=== PATIENT | male | born 1970 | race Caucasian/White ===

== ENCOUNTER → 2019-07-17 08:12 | Outpatient (BNVA) | payer BC, SELFPAY | PROVIDERS: Family Provider Family Medicine; Visit Provider Urology | DX: N41.1 Chronic prostatitis (principal) | CPT/HCPCS: 81001 ==

== ENCOUNTER → 2020-03-06 08:28 | Outpatient (BNVA) | payer BC, SELFPAY | PROVIDERS: Family Provider Family Medicine; PCP Family Medicine; Visit Provider Urology | DX: N41.1 Chronic prostatitis (principal) | CPT/HCPCS: 81003 ==

== ENCOUNTER → 2020-06-26 13:55 | Outpatient (BNVA) | payer OTHER, SELFPAY | PROVIDERS: Family Provider Family Medicine; PCP Family Medicine; Referring Provider Family Medicine; Visit Provider Orthopaedic Surgery | DX: M51.9 Unspecified thoracic, thoracolumbar and lumbosacral intervertebral disc disorder (principal); M47.816 Spondylosis without myelopathy or radiculopathy, lumbar region; M43.16 Spondylolisthesis, lumbar region | CPT/HCPCS: 72110 ==

== ENCOUNTER → 2020-09-04 08:15 | Outpatient (BNVA) | payer OTHER, SELFPAY | PROVIDERS: Family Provider Family Medicine; PCP Family Medicine; Visit Provider Urology | DX: Z12.5 Encounter for screening for malignant neoplasm of prostate (principal); N41.1 Chronic prostatitis | CPT/HCPCS: 81003; 84153 ==

== ENCOUNTER 2020-12-04 07:57 | Outpatient (CLI) | payer OTHER, SELFPAY ==
--- NOTE | 2020-12-04 08:00 | MR_ITS ---
WS: [id number] MRI LUMBAR SPINE NONCONTRAST HISTORY: M48.062 - Spinal stenosis, lumbar region with LEFT leg radiculopathy. Pain and cramping. COMPARISON: 02/26/2019 TECHNIQUE: Sagittal and axial multisequence imaging is submitted. Survey of the spine demonstrates mild disc bulging at C3-4. Central disc protrusions at T4-5 and T6-7 . Normal lumbar alignment with no compression fractures or marrow edema. Mild disc desiccation throughout the lumbar spine and small endplate osteophytes and hypertrophic audelia nges. No significant progression since the prior study. Conus terminates normally at L1-2 disc level. L1-L2: Mild annular disc bulging. Very slight effacement of the ventral thecal sac. No stenosis. Mild facet arthritis. L2-L3: Diffuse annular disc bulging with a central disc protrusion which extends greater to the RIGHT of midline. Mild ligamentum flavum and facet arthritis. Very minimal narrowing of the subarticular r ecesses. No high-grade stenosis. L3-L4: Diffuse annular disc bulging with a very tiny RIGHT foraminal disc protrusion which is unchang ed. Mild ligamentum flavum hypertrophy and facet arthritis. No significant stenosis. L4-L5: New LEFT disc extrusion. Disc extrusion extends into the LEFT lateral recess and below the dis c by 1.4 cm. There is contact on the LEFT lateral thecal sac and posterior displacement and narrowing of the LEFT subarticular recess. Moderate ligamentum flavum hypertrophy and facet arthritis. Severe encroachment into the LEFT lateral recess and LEFT subarticular recess. Mild foraminal narrowing. L5-S1: Diffuse disc bulging with a central protrusion and a broad-based protrusion extending into the LEFT foramen. Annular fissures are also present within the disc. Very mild LEFT foraminal narrowing. No contact on the S1 nerve roots. MR/MR lumbar spine wo con* [id number] IMPRESSION: 1. New moderate size disc extrusion at L4-5 extending significantly into the L EFT lateral recess and subarticular recess. There is significant deformity and displacement of the traversing L5 nerve root on the LEFT. Moderate LEFT subarti cular stenosis by disc protrusion. 2. Additional multilevel facet joint arthritis as described above. No additio nal high-grade stenosis. 3. Central disc protrusion at L2-3 is unchanged with no contact on the nerve r oots.
== END 2020-12-04 07:58 | disposition home or self-care (01) ==
LOC: RADSHAW 08:02
PROVIDERS: PCP Family Medicine; Visit Provider Orthopaedic Surgery
DX: M48.062 Spinal stenosis, lumbar region with neurogenic claudication (principal); M51.26 Other intervertebral disc displacement, lumbar region; M47.816 Spondylosis without myelopathy or radiculopathy, lumbar region
CPT/HCPCS: 72148

== ENCOUNTER → 2021-03-09 07:00 | Outpatient (BNVA) | payer OTHER, SELFPAY | PROVIDERS: PCP Family Medicine; Visit Provider Urology | DX: N41.1 Chronic prostatitis (principal) | CPT/HCPCS: 81003 ==

== ENCOUNTER → 2021-04-01 11:52 | Outpatient (BNVA) | payer OTHER, SELFPAY | PROVIDERS: PCP Family Medicine; Visit Provider Family Medicine | DX: E03.9 Hypothyroidism, unspecified (principal); R06.02 Shortness of breath; R79.89 Other specified abnormal findings of blood chemistry | CPT/HCPCS: 80053; 84403; 84443; 85025 ==

== ENCOUNTER → 2021-04-06 11:17 | Outpatient (BNVA) | payer OTHER, SELFPAY | PROVIDERS: PCP Family Medicine; Visit Provider Orthopaedic Surgery | DX: Z20.822 Contact with and (suspected) exposure to COVID-19 (principal) | CPT/HCPCS: 87635 ==

== ENCOUNTER 2021-04-13 06:54 | Day surgery (SDC) | payer OTHER, SELFPAY ==
[2021-04-10 10:35] VITALS: BMI 30.1
--- NOTE | 2021-04-11 11:58 | ANES.PREANE2 ---
Pre-Anesthetic Assessment Pre-Anesthetic Assessment: Height/Weight: Height 1.78 m Weight 95.254 kg Proposed Procedure: Operation Date: 04/13/21 08:15 Proposed Procedures p Discectomy 48372/m48.062(Left) - Daniel Cunningham, DO Was Beta Toby taken within 24 hours: N/A Was Clonidine taken within 24 hours: N/A Social: Social History: No alcohol and No tobacco Exam: Pre-Anes Outpt Exam: alert, oriented x 3, clear to auscultation bilaterally and regular rate & rhythm Airway: Submandibular: WNL Cervical ROM: WNL MP: 2 Dentition: Full CV/HEM: CV/HEM: HTN Musc/skel: Musc/skel: Lower Back Pain Anesthetic Plan: ASA status: 2 Anesthesia: General Risk of > 500 ml blood loss (7ml/kg in children): No PFSH Anesthesia PFSH: Medical History Allergic rhinitis Cervical disc disorder with myelopathy of mid-cervical region Chronic prostatitis Years of longstanding refractory chronic prostatitis with failure to maintain normalcy with weaning of antibiotics. Hypertension Intervertebral lumbar disc disorder Plantar fasciitis Surgical History History of appendectomy Family History Mother , AT AGE 77 Chronic kidney disease (CKD) Father , AT AGE 92 Stroke Social History Smoking and tobacco status: never smoked Alcohol intake: current Alcohol intake frequency: holidays/special occasions only Lives independently: Yes Household members: spouse Marital status: Current occupational status: employed History of recent travel: No Data Anesthesia Cardiac Studies: No Data to Display
[2021-04-13] VITALS (9 sets, daily range): BP systolic 140–175; BP diastolic 86–100; PULSE 69–96; RESP 10–18; TEMP 36.8–37.3; O2SAT 92–97
--- NOTE | 2021-04-13 | SCC_ITS ---
Procedure Done: 1. Left L4/5 laminectomy with partial facetectomy and diskectomy 5.3 seconds of fluoroscopic guidance, for a cumulative dose of 1.58 mGy, was provided to Dr. Cunningham by the radiology department. C-arm images of the lumbar spine were saved for the patient's permanent record. [facility]
--- NOTE | 2021-04-13 | XR_ITS ---
WS: [id number] Lumbar spine, C-arm fluoroscopy, 04/13/2021 Clinical Data: lumbar stenosis with neurogenic claudication Comparison: None. Findings: Dr. Cunningham performed a lumbar decompression. XR/XR lumbar spine 1V [id number] Impression: Lumbar decompression.
[2021-04-13] MEDS: sodium chloride 0.9% 1,000 ML 30 ML IV (07:29)
--- NOTE | 2021-04-13 07:41 | P.ANESUD_ITS ---
Pre-Anesthetic Update Pre-Anesthetic Assessment: Date of Surgery/Procedure: 04/13/21 Preop Courtney gnosis: Left L4-5 disc herniation Proposed Procedure: Operation Date: 04/13/21 08:15 Proposed Procedures p Discectomy 76988/m48.062(Left) - Daniel Cunningham, DO Any changes to Pre-Anesthetic Assessment?: No Last Intake: Intake Last Liquid Date 04/12/21 Last Liquid Time 19:00 Last Solid Date 04/12/21 Last Solid Time 19:00 Vitals: Temperature 99.2 F 04/13/21 07:09 Temperature Source Temporal Artery S can 04/13/21 07:09 Pulse Rate 75 04/13/21 07:09 Pulse Rhythm 04/13/21 07:09 Pulse Strength 3+ Normal 04/13/21 07:09 Respiratory Rate 18 04/13/21 07:09 Blood Pressure 157/86 04/13/21 07:09 Blood Pressure Sondra n 109 04/13/21 07:09 Pulse Oximetry 96 04/13/21 07:09 Oxygen Delivery Me thod 04/13/21 07:09 Exam: Pre-Anes Outpt Exam: alert, oriented x 3, clear to auscultation bilaterally and regular rate & rhythm Cardiac Studies: No Data to Display
--- NOTE | 2021-04-13 08:00 | W.PM.OPSUD ---
Surgery/Procedure H&P Update DATE OF PROCEDURE: April 13, 2021 DATE H&P PERFORMED: 03/24/21 H&P UPDATE INFORMATION: I have reviewed H&P completed within last 30 days, I have examined patient prior to procedure and No changes to prior documentation PREOP DIAGNOSIS: Left L4-5 disc herniation PLANNED PROCEDURE: Operation Date: 04/13/21 08:15 Proposed Procedures p Discectomy 96773/m48.062(Left) - Daniel Cunningham DO
--- NOTE | 2021-04-13 09:41 | PM.OP ---
Operative Report Date of procedure: April 13, 2021 Pre-op Diagnosis: Left L4-5 disc herniation Post-op diagnosis: same Procedure Done: 1. Left L4/5 laminectomy with partial facetectomy and diskectomy Surgeon: Daniel Cunningham Anesthesia: General Estimated blood loss (mL): 20 Condition: stable Disposition: PACU Procedure: 1. Left L4/5 laminectomy with partial facetectomy and diskectomy Patient is brought to the operative suite. After undergoing anesthesia they are placed in the prone position. All areas of impingement are well padded. Patient is then prepped and draped in the normal sterile fashion. A skin incision is made over the L4/5 level. This is confirmed under c-arm guidance. A series of dilators are passed and the tubular retractor is docked on the L4 lamina. A bovie is used to clear the soft tissue off the lamina and the L 4/5 facet joint. A high speed gudelia is then used to perform the laminectomy and take down the medial aspect of the L 4/5 facet joint. A kerrison rongeure was then used to take down the remaining lamina and smooth the edge of the laminectomy up to the point where the ligamentum flavum attaches. Attention was then brought to the medial aspect of the facet joint. The remaining medial aspect of the superior and inferior aspect of the facet joint were taken down with the kerrison from the pedicle of L4 to L 5. The facet joint had significant hypertrophy. Attention was then brought to the Ligamentum Flavum. The ligament was taken down from the lamina of L4 to L5 and out medially to the remaining facet joint. The ligament was thick. The dura was then exposed. The dura was in good repair. small disk extrusion was identified and removed. The L4 nerve was then traced with a curette out the L4/5 foramen and found to be adequately decompressed. The L5 nerve was traced with a curette around the L5 pedicle. The lateral recess was opened with a kerrison helping to further decompress the L5 nerve. Wound is then irrigated copiously with saline and surgiflo is used to stop any bleeding. The tubular retractor is removed and the wound is closed with vicryl and monocryl suture. Glue is then used to protect the wound. A sterile dressing is then placed. Patient was then placed in the supine position and transferred to the PACU in stable condition.
[2021-04-13] MEDS: HYDROcodone-acetaminophen 10-325 mg Tablet 1 TAB PO (10:39)
--- NOTE | 2021-04-13 14:42 | ANE.PACU2 ---
Inpatient post-anesthesia follow up: Airway intact: Yes Vital signs: Temperature 98.3 F Pulse Rate 69 Respiratory Rate 18 Blood Pressure 140/90 Pulse Oximetry 94 Oxygen Delivery Me thod Room Air Oxygen Flow Rate 5 Fraction of Inspir ed Oxygen Hydration adequate: Yes Nausea and vomiting: No Pain level: 4 Mental status: Baseline
== END 2021-04-13 11:11 | disposition home or self-care (01) ==
PROVIDERS: PCP Family Medicine; Visit Provider Orthopaedic Surgery
PROC: (CPT 63030; principal; 2021-04-13 08:15)
DX: M51.26 Other intervertebral disc displacement, lumbar region (principal); I10 Essential (primary) hypertension; M48.062 Spinal stenosis, lumbar region with neurogenic claudication
CPT/HCPCS: 63030; 72020; 76000; J0690; J1100; J1170; J1885; J2405; J2704; J2710; J3010; J3490; J7030

== ENCOUNTER → 2021-05-05 11:04 | Outpatient (BNVA) | payer OTHER, SELFPAY | PROVIDERS: PCP Family Medicine; Visit Provider Family Medicine | DX: R06.02 Shortness of breath (principal); K44.9 Diaphragmatic hernia without obstruction or gangrene | CPT/HCPCS: 71046 ==

== ENCOUNTER → 2021-05-28 08:26 | Outpatient (BNVA) | payer OTHER, SELFPAY | PROVIDERS: PCP Family Medicine; Visit Provider Physician Assistant | DX: M51.9 Unspecified thoracic, thoracolumbar and lumbosacral intervertebral disc disorder (principal); M25.78 Osteophyte, vertebrae; M43.16 Spondylolisthesis, lumbar region | CPT/HCPCS: 72110 ==

== ENCOUNTER 2021-06-09 06:00 | Outpatient (RCR) | payer OTHER, SELFPAY | END 2021-06-18 23:59 | disposition home or self-care (01) | LOC: SPT 06:00 | PROVIDERS: PCP Family Medicine; Referring Provider Physician Assistant; Visit Provider Physician Assistant | DX: Z47.89 Encounter for other orthopedic aftercare (principal) | CPT/HCPCS: 97110; 97161 ==

== ENCOUNTER 2021-06-16 08:00 | Outpatient (CLI) | payer OTHER, SELFPAY ==
--- NOTE | 2021-06-16 08:30 | FL_ITS ---
WS: [id number] Exam: FL barium swallow gastro [id number] Date/Time of Exam: 06/16/2021 8:16 AM Reason For Exam: Fluoroscopy time: 1.9 minutes Preliminary survey is unremarkable. Swallowing function at the level of the oropharynx is normal. The re was no indication of esophageal stricture or mass. Esophageal motility was normal. No gastroesopha geal reflux or hiatal hernia was demonstrated. Montmorency-type stomach is noted. Contrast spills freely through the proximal duodenum into the small bowel. FL/FL barium swallow gastro [id number] IMPRESSION: 1. Normal water-soluble contrast esophagram. No mass, stricture or motility dis order noted. No gastroesophageal reflux or hiatal hernia. 2. 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
[2021-06-16] MEDS: diatrizoate meglumine 120 mL Sol PO (09:16)
== END 2021-06-16 08:01 | disposition home or self-care (01) ==
PROVIDERS: PCP Family Medicine; Visit Provider Family Medicine
DX: K44.9 Diaphragmatic hernia without obstruction or gangrene (principal)
CPT/HCPCS: 74220

== ENCOUNTER 2021-06-19 06:00 | Outpatient (RCR) | payer OTHER, SELFPAY | END 2021-07-18 23:59 | disposition home or self-care (01) | LOC: SPT 06:00 | PROVIDERS: PCP Family Medicine; Referring Provider Physician Assistant; Visit Provider Physician Assistant | DX: Z47.89 Encounter for other orthopedic aftercare (principal); M54.50 Low back pain, unspecified | CPT/HCPCS: 97110 ==

== ENCOUNTER → 2021-07-14 15:30 | Outpatient (BNVA) | payer OTHER, SELFPAY | PROVIDERS: PCP Family Medicine; Visit Provider Internal Medicine Pulmonary Disease | DX: R06.00 Dyspnea, unspecified (principal); R06.02 Shortness of breath; M25.641 Stiffness of right hand, not elsewhere classified; M25.642 Stiffness of left hand, not elsewhere classified; I10 Essential (primary) hypertension | CPT/HCPCS: 36415; 80053; 82785; 85025; 85651; 86003; 86140; 86160; 86162; 86235; 86255; 86376 ==

== ENCOUNTER 2021-07-19 | Outpatient (RCR) | payer OTHER, SELFPAY | END 2021-07-22 23:59 | disposition home or self-care (01) | LOC: SPT | PROVIDERS: PCP Family Medicine; Referring Provider Physician Assistant; Visit Provider Physician Assistant | DX: M54.50 Low back pain, unspecified (principal) | CPT/HCPCS: 97110 ==

== ENCOUNTER 2021-08-24 07:39 | Outpatient (CLI) | payer OTHER, SELFPAY ==
--- NOTE | 2021-08-24 07:45 | US_ITS ---
WS: [id number] RIGHT UPPER QUADRANT ULTRASOUND HISTORY: early satiety/epigastric pain refractory to meds COMPARISON: None available. Liver: 18.8 cm in length. Liver is moderately enlarged and heterogeneous with increased attenuation. No bile duct dilatation or mass. Portal Vein: Normal hepatopetal flow with monophasic waveform. Gallbladder: Normally distended gallbladder with no stones or wall thickening. CBD: 0.4 cm Pancreas: Normal size and echogenicity. Right kidney: 11.0 cm in length. Normal size and echogenicity. No hydronephrosis or mass. Aorta and IVC: Unremarkable abdominal aorta and IVC. No ascites. US/US gall bladder [id number] IMPRESSION: 1. Normal gallbladder. 2. Moderate hepatomegaly and hepatic steatosis. 3. No bile duct dilatation.
== END 2021-08-24 07:40 | disposition home or self-care (01) ==
PROVIDERS: PCP Family Medicine; Visit Provider Family Medicine
DX: K81.1 Chronic cholecystitis (principal)
CPT/HCPCS: 76705

== ENCOUNTER 2021-08-26 10:03 | Outpatient (CLI) | payer OTHER, SELFPAY ==
--- NOTE | 2021-08-26 10:00 | CTR_ITS ---
PROCEDURE INFORMATION: Exam: CT Chest Without Contrast; Diagnostic Exam date and time: 08/26/2021 10:13 AM Age: 51 years old Clinical indication: Cough and shortness of breath; Patient HX: Reports all started with cough approx 2 years ago, SOB worsening since summer/fall, feels worse after eating. Reports SOB on exertion, at rest, with speech, and when lying down. 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 Radiation optimization: All CT scans at this facility use at least one of these dose optimization techniques: automated exposure control; mA and/or kV adjustment per patient size (includes targeted exams where dose is matched to clinical indication); or iterative reconstruction. COMPARISON: CR XR chest 2V* [id number] 05/05/2021 11:19 AM RADIATION DOSE METRICS: Total DLP (mGy-cm): 2044.71 FINDINGS: Lungs: There is an 8 mm benign calcified granuloma in the left lower lobe. There are multiple small benign calcified lymph nodes in the left pulmonary hilum. Pleural spaces: Unremarkable. No pneumothorax. No pleural effusion. Heart: Unremarkable. No cardiomegaly. No pericardial effusion. No significant coronary artery calcification. Lymph nodes: No lymphadenopathy. Vasculature: Unremarkable. No aortic aneurysm. Diaphragm: There is elevation of the left hemidiaphragm which was present on the previous chest x-ray. There is compressive atelectasis in the left lower lobe and lingula. The remaining lung zones are clear. No interstitial fibrosis or suspicious nodules are seen. Bones/joints: Moderate chronic DJD is present in the spine. No acute bony abnormality. Soft tissues: Unremarkable. CT/CT chest wo con [id number] IMPRESSION: 1. There is elevation of the left hemidiaphragm which was seen on the previous chest x-ray and there is compressive atelectasis in the left lower lobe and left lingula. 2. Benign calcified granulomas disease.
== END 2021-08-26 10:04 | disposition home or self-care (01) ==
LOC: RAD 10:05
PROVIDERS: PCP Family Medicine; Visit Provider Internal Medicine Pulmonary Disease
DX: R06.00 Dyspnea, unspecified (principal); R06.89 Other abnormalities of breathing; K44.9 Diaphragmatic hernia without obstruction or gangrene; R05.8 Other specified cough; T46.4X5A Adverse effect of angiotensin-converting-enzyme inhibitors, initial encounter
CPT/HCPCS: 71250

== ENCOUNTER 2021-08-28 12:38 | Outpatient (CLI) | payer OTHER, SELFPAY ==
[2021-08-28 12:58] VITALS: BMI 30.1
[2021-08-28 13:29] VITALS: BP 143/76; PULSE 95
--- NOTE | 2021-08-28 13:30 | ECG_ITS ---
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 Interpretive Statements NAME OF STUDY: TREADMILL STRESS TEST INDICATION: Exertional shortness of breath Baseline blood pressure of 135/98 mm Hg, heart rate of 76 beats per minute and oxygen saturation of 92%. EKG showed normal sinus rhythm, normal axis. Poor anterior R wave progression. Nonspecific T wave inversion in lead III. The patient exercised for 10 minutes 40 seconds on a standard [place] protocol. Patient attained a maximum heart rate of 151 beats per minute(89% of the maximum predicted heart rate) with a blood pressure at the peak exercise of 195/119 mm Hg and oxygen saturation 95%. The EKG at the peak exercise revealed revealed sinus tachycardia with no significant ST-T wave changes. Patient did not have any chest pain or any significant arrhythmis with the exercise. The study was terminated due to maximal effort. During the recovery phase, there were no new changes. Blood pressure at the end of the recovery phase was 143/76 mm Hg with a heart rate of 94 beats per minute and oxygen saturation 95%. CONCLUSION: 1. Normal EKG response to treadmill exercise. 2. No exercise-induced chest pain or cardiac arrhythmia. 3. Excellent exercise tolerance, attained a maximum of 13.5 METs. Maximum VO2 of 47.3 mL/kg/min. 4. Baseline hypertension with normal response to exercise. 5. Elmore treadmill score of 10.5, suggestive of low risk. Electronically Signed On 08-28-2021 14:23:55 CDT by Jackie Vega M.D. [email or web address]
== END 2021-08-28 12:39 | disposition home or self-care (01) ==
LOC: CDL 12:38
PROVIDERS: PCP Family Medicine; Visit Provider Internal Medicine Pulmonary Disease
DX: R06.00 Dyspnea, unspecified (principal)
CPT/HCPCS: 93017

== ENCOUNTER 2021-09-03 07:01 | Outpatient (CLI) | payer OTHER, SELFPAY ==
--- NOTE | 2021-09-03 13:06 | PFTS_ITS ---
Date of Study:09/03/21 Date of Dictation: 09/03/2021 MECHANICS: Postbronchodilator forced vital capacity (FVC) is reduced Postbronchodilator forced expiratory volume in one second (FEV1) is normal FEV1/FVC is normal. There is no significant response to bronchodilators. FLOW VOLUME LOOP: normal. LUNG VOLUMES: Total lung capacity (TLC) is mildly reduced. Residual volume ( RV) is normal DIFFUSING CAPACITY FOR CARBON MONOXIDE: Normal . INTERPRETATION: The spirometry is suggestive of mild restriction. There is no significant response to bronchodilators. Lung volumes are minimally reduced. Gas transfer is normal. Correlate clinically. MTDD
== END 2021-09-03 07:02 | disposition home or self-care (01) ==
LOC: RT 07:02
PROVIDERS: PCP Family Medicine; Visit Provider Internal Medicine Pulmonary Disease
DX: R06.00 Dyspnea, unspecified (principal)
CPT/HCPCS: 94060; 94618; 94726; 94729; J7611

== ENCOUNTER 2021-09-08 10:21 | Day surgery (SDC) | payer OTHER, SELFPAY ==
[2021-09-08 10:37] VITALS: BP 134/91; PULSE 73; RESP 18; TEMP 36.6; O2SAT 96
--- NOTE | 2021-09-08 11:09 | P.ANESASSM_ITS ---
Documented by User: Neptali Talley Jr, CRANE ENGINEER 09/08/21 11:19 Pre-Anesthetic Assessment Height/Weight: Height 1.78 m Weight 94.347 kg Temp Pulse Resp BP Pulse Ox 97.9 F 73 18 134/91 96 09/08/21 10:37 09/08/21 10:37 09/08/21 10:37 09/08/21 10:37 09/08/21 10:37 Preop Diagnosis: Left L4-5 disc herniation Operation Date: 09/08/21 11:45 Proposed Procedures p EGD 65516,R10.13(Not Applicable) - Palomo Benedict MD Familial anesthetic complications: none Was Beta Toby taken within 24 hours: N/A Was Clonidine taken within 24 hours: N/A Last intake: Intake Last Liquid Date 09/07/21 Last Liquid Time 20:00 Last Solid Date 09/07/21 Last Solid Time 18:00 Last Intake: 20:00 Social No alcohol and No tobacco Exam alert, oriented x 3, clear to auscultation bilaterally and regular rate & rhythm Airway Submandibular: within normal limits Cervical ROM: within normal limits Mallampati: Class II Dentition: full Pulmonary Asthma CV/HEM Hypertension None reported Hepatic None reported GI Gastroesophageal Reflux Disease and Hiatal Hernia Metabolic None reported Musc/skel Lower Back Pain and Osteoarthritis/DJD Neuropsych None reported Anesthetic Plan ASA status: 2 Anesthesia: MAC Risk of > 500 ml blood loss (7ml/kg in children): No Medications/Allergies Home Medications Medication Instructions Recorded Confirmed Last Taken Type hydrocodone 10 mg-acetaminophen 1 tab PO BID PRN 06/25/20 09/08/21 09/07/21 History 325 mg tablet levofloxacin 500 mg tablet 500 mg PO DAILY #90 tab 05/05/21 09/08/21 09/07/21 Rx losartan 25 mg tablet 25 mg PO DAILY #30 tab 07/14/21 09/08/21 09/07/21 Rx albuterol sulfate 90 mcg/actuation 2 puff INHALATION Q6H PRN #8.5 g 07/22/21 09/08/21 Unknown Rx aerosol inhaler budesonide-formoterol HFA 160 2 puff INHALATION BID #10.2 g 08/03/21 09/08/21 09/07/21 Rx mcg-4.5 mcg/actuation aerosol inhaler (Symbicort) pantoprazole 40 mg tablet,delayed 40 mg PO BID 30 Days #60 tab 08/25/21 09/08/21 09/07/21 Rx release (Protonix) Allergies Allergy/AdvReac Type Severity Reaction Status Date / Time No Known Allergies Allergy Verified 09/08/21 09:05 PENDING SALE TO [facility] Anesthesia Medical History Allergic rhinitis Cervical disc disorder with myelopathy of mid-cervical region Chronic prostatitis Years of longstanding refractory chronic prostatitis with failure to maintain normalcy with weaning of antibiotics. Hiatal hernia Hypertension Intervertebral lumbar disc disorder Plantar fasciitis Surgical History (Updated 09/08/21 @ 13:14 by Palomo Benedict MD) H/O esophagogastroduodenoscopy (09/08/21) History of appendectomy History of back surgery Family History Mother , AT AGE 77 Chronic kidney disease (CKD) Father , AT AGE 92 Stroke Social History Smoking and tobacco status: never smoked Alcohol intake: current Alcohol intake frequency: holidays/special occasions only Lives independently: Yes Household members: spouse Marital status: Current occupational status: employed History of recent travel: No Data Anesthesia Cardiac Studies: No Data to Display
--- NOTE | 2021-09-08 12:23 | W.PM.OPSFHP ---
Same Day Surgery H&P Indication for Procedure/HPI DATE OF PROCEDURE: September 08, 2021 CHIEF COMPLAINT/INDICATIONFOR SURGICAL PROCEDURE: egd PREOP DIAGNOSIS: Left L4-5 disc herniation PLANNED PROCEDURE: Operation Date: 09/08/21 11:45 Proposed Procedures p EGD 18896,R10.13(Not Applicable) - Palomo Benedict MD Medications/Allergies* Home Medications Medication Instructions Recorded Confirmed Type hydrocodone 10 mg-acetaminophen 1 tab PO BID PRN 06/25/20 09/08/21 History 325 mg tablet Allergies/Adverse Reactions Allergy/AdvReac Type Severity Reaction Status Date / Time No Known Allergies Allergy Verified 09/08/21 09:05 Pertinent History/Comorbid Conditions* Medical History (Updated 08/14/21 @ 09:04 by Camila French MD) Allergic rhinitis Cervical disc disorder with myelopathy of mid-cervical region Chronic prostatitis Years of longstanding refractory chronic prostatitis with failure to maintain normalcy with weaning of antibiotics. Hiatal hernia Hypertension Intervertebral lumbar disc disorder Plantar fasciitis Surgical History (Updated 07/17/21 @ 16:01 by Palomo Benedict MD) History of appendectomy History of back surgery Family History (Updated 07/17/19 @ 08:29 by Katherine Velasco LPN) Father, AT AGE 92 Mother, AT AGE 77 Chronic kidney disease (CKD) Mother Stroke Father Social History Smoking and tobacco status: never smoked Alcohol intake: current Alcohol intake frequency: holidays/special occasions only Lives independently: Yes Household members: spouse Marital status: Current occupational status: employed History of recent travel: No Pertinent Exam Findings alert, oriented x 3 and regular rate & rhythm Recommendations Surgery/Procedure today Coding Level of Care Code 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
[2021-09-08 12:50] VITALS: BP 122/83; PULSE 67; RESP 16; TEMP 36.6; O2SAT 95
[2021-09-08 12:59] VITALS: BP 121/88; PULSE 69; RESP 18; O2SAT 96
[2021-09-08] MEDS: sodium chloride 0.9% 1,000 ML 30 ML IV (13:12)
--- NOTE | 2021-09-08 14:13 | ANE.PACU2 ---
Inpatient post-anesthesia follow up: Airway intact: Yes Vital signs: Temperature 97.8 F Pulse Rate 69 Respiratory Rate 18 Blood Pressure 121/88 Pulse Oximetry 96 Oxygen Delivery Me thod Room Air Oxygen Flow Rate 3 Fraction of Inspir ed Oxygen Hydration adequate: Yes Nausea and vomiting: No Pain level: 1 Mental status: Baseline
== END 2021-09-08 13:25 | disposition home or self-care (01) ==
PROVIDERS: PCP Family Medicine; Visit Provider Surgery
PROC: 0DJ08ZZ Inspection of Upper Intestinal Tract, Via Natural or Artificial Opening Endoscopic (ICD-10-PCS; CPT 43235; principal; 2021-09-08 11:45)
DX: R10.13 Epigastric pain (principal); I10 Essential (primary) hypertension; J45.909 Unspecified asthma, uncomplicated; K21.9 Gastro-esophageal reflux disease without esophagitis
CPT/HCPCS: 43239; 81003; 88305; 88342; J2704; J7030

== ENCOUNTER → 2021-09-09 10:32 | Outpatient (BNVA) | payer OTHER, SELFPAY | PROVIDERS: PCP Family Medicine; Referring Provider Internal Medicine Pulmonary Disease; Visit Provider Internal Medicine | DX: R76.8 Other specified abnormal immunological findings in serum (principal); M46.1 Sacroiliitis, not elsewhere classified; N41.1 Chronic prostatitis; M51.36 Other intervertebral disc degeneration, lumbar region; R06.00 Dyspnea, unspecified; R06.89 Other abnormalities of breathing; M25.641 Stiffness of right hand, not elsewhere classified; M25.642 Stiffness of left hand, not elsewhere classified; L40.9 Psoriasis, unspecified | CPT/HCPCS: 72202; 73120; 81003; 82550; 82607; 82728; 83516; 83540; 83735; 84100; 84443; 85651; 86140; 86431; 86617; 86704; 86803; 87340 ==

== ENCOUNTER → 2021-09-14 10:02 | Outpatient (BNVA) | payer OTHER, SELFPAY | PROVIDERS: PCP Family Medicine; Visit Provider Internal Medicine Pulmonary Disease | DX: M54.2 Cervicalgia (principal); M47.892 Other spondylosis, cervical region | CPT/HCPCS: 72040 ==

== ENCOUNTER → 2021-10-09 08:54 | Outpatient (BNVA) | payer OTHER, SELFPAY | PROVIDERS: PCP Family Medicine; Visit Provider Internal Medicine | DX: M47.816 Spondylosis without myelopathy or radiculopathy, lumbar region (principal); M47.814 Spondylosis without myelopathy or radiculopathy, thoracic region | CPT/HCPCS: 72072; 72100 ==

== ENCOUNTER 2021-10-15 14:46 | Outpatient (CLI) | payer OTHER, SELFPAY ==
--- NOTE | 2021-10-15 16:00 | CT_ITS ---
WS: [id number] CT ABDOMEN AND PELVIS WITH CONTRAST HISTORY: K81.1 - Chronic cholecystitis TECHNIQUE: Imaging performed of the abdomen and pelvis with IV contrast. Single phase imaging of the abdomen. Coronal and sagittal reformats are submitted. All CT scans at [facility] use at [address] one of these dose optimization techniques: automated exposure control; mA and/or kV adjustment per patient size (includes targeted exams where dose is matched to clinical indication); or iterative re construction. IV CONTRAST: Omnipaque 350; 95 mL IV. Oral contrast: Yes. DLP: 1306.37 mGy.cm COMPARISON: None available. Lower thorax: Moderate elevation of the LEFT hemidiaphragm with LEFT basilar compressive atelectasis. Heart is normal size. No hiatal hernia. Liver/biliary system: Normal size with no intrahepatic dilatation. Normal portal vein. Gallbladder: Normal. No gallstones or wall thickening. No pericholecystic fluid. Pancreas: Normal size pancreas and pancreatic duct. No adjacent inflammation. Spleen: Normal size spleen with several granulomata. Adrenal glands: Normal. Right kidney: Normal. Left kidney: Normal. Aorta: Normal. Lymphadenopathy: None. Free fluid: None. GI tract: Stomach is markedly distended with food products and contrast. There is a solid-appearing m ass with interspersed air in the stomach which is probably a food bolus. This consolidation was not p resent on the study from 08/26/2021 therefore this is probably not a bezoar. The stomach is high riding into the lower thorax due to elevated LEFT hemidiaphragm and atelectasis. No small bowel obstruction . Mild constipation. The appendix as been removed. Abdominal wall: Fat containing umbilical hernia. Pelvis: Urinary bladder is well distended. Prostate gland is very mildly enlarged encroaching into th e bladder. Central calcifications within the prostate gland. RIGHT inguinal canal is patent and conta ins fat. Normal urinary bladder. Bones: Mild lower thoracic and lumbar spondylosis. Very mild narrowing of the hip joints. CT/CT abdomen pelvis w con* [id number] IMPRESSION: 1. Moderate elevation of the LEFT hemidiaphragm with LEFT basilar atelectasis. 2. Prominent, elongated stomach extends into the lower LEFT thorax beneath the elevated diaphragm. Similar to the prior study of 08/26/2021. 3. Normal appearing gallbladder by CT. 4. No bile duct dilatation. 5. Prior appendectomy. 6. Very small fat-containing umbilical hernia and RIGHT inguinal hernia. 7. Prostate gland enlargement with central calcifications.
== END 2021-10-15 14:47 | disposition home or self-care (01) ==
LOC: RAD 14:47
PROVIDERS: PCP Family Medicine; Visit Provider Surgery
DX: K81.1 Chronic cholecystitis (principal); K44.9 Diaphragmatic hernia without obstruction or gangrene; J98.11 Atelectasis; Z90.49 Acquired absence of other specified parts of digestive tract; K42.9 Umbilical hernia without obstruction or gangrene; K40.90 Unilateral inguinal hernia, without obstruction or gangrene, not specified as recurrent; N40.0 Benign prostatic hyperplasia without lower urinary tract symptoms
CPT/HCPCS: 74177; Q9967

== ENCOUNTER 2021-12-08 07:06 | Day surgery (SDC) | payer OTHER, SELFPAY ==
[2021-12-04 13:39] VITALS: BMI 30.1
[2021-12-08] VITALS (8 sets, daily range): BP systolic 122–144; BP diastolic 91–97; PULSE 68–74; RESP 16–18; TEMP 36.1–36.8; O2SAT 94–99
[2021-12-08] MEDS: sodium chloride 0.9% 1,000 ML 30 ML IV (07:47)
--- NOTE | 2021-12-08 07:56 | W.PM.OPSUD ---
Surgery/Procedure H&P Update DATE OF PROCEDURE: December 08, 2021 DATE H&P PERFORMED: 12/02/21 CHANGES TO PREVIOUS DOCUMENTATION: None PREOP DIAGNOSIS: Left L4-5 disc herniation PRIMARY INDICATION FOR PROCEDURE: Elevated left hemidiaphragm leading to left lower lobe and left lingular atelectasis PLANNED PROCEDURE: Operation Date: 12/08/21 08:40 Proposed Procedures p bronchoscopy 27311, 99902, 68443, 54500,R91.8(Not Applicable) - Roel Benedict DatarMD
--- NOTE | 2021-12-08 07:57 | ANES.PREANE2 ---
Pre-Anesthetic Assessment Height/Weight: Height 1.78 m Weight 95.254 kg Temp Pulse Resp BP Pulse Ox O2 Del Method 98.2 F 68 18 144/95 94 12/08/21 07:44 12/08/21 07:44 12/08/21 07:44 12/08/21 07:44 12/08/21 07:44 12/08/21 07:44 Operation Date: 12/08/21 08:40 Proposed Procedures p bronchoscopy 99130, 50263, 12974, 73088,R91.8(Not Applicable) - Roel Benedict DatarMD Familial anesthetic complications: no issues Last intake: Intake Last Liquid Date 12/07/21 Last Liquid Time 22:00 Last Solid Date 12/07/21 Last Solid Time 19:00 Social Alcohol (3 drink per week on average.) and No tobacco Airway Submandibular: within normal limits Cervical ROM: within normal limits Mallampati: Class I Dentition: full Pulmonary Asthma and Shortness of Breath partial collapsed lung CV/HEM Hypertension atypical chest pain -stress test 09/09 None reported Hepatic None reported GI Gastroesophageal Reflux Disease controlled. Metabolic None reported Musc/skel Lower Back Pain Neuropsych None reported Anesthetic Plan ASA status: 3 Anesthesia: General Medications/Allergies Home Medications Medication Instructions Recorded Confirmed Last Taken Type hydrocodone 10 mg-acetaminophen 1 tab PO BID PRN Pain 06/25/20 12/04/21 12/07/21 History 325 mg tablet albuterol sulfate 90 mcg/actuation 2 puff inhalation Q6H PRN 09/22/21 12/08/21 12/06/21 Rx aerosol inhaler shortness of breath or wheezing #8.5 grams budesonide-formoterol HFA 160 2 puff inhalation BID #10.2 grams 09/22/21 12/04/21 12/07/21 Rx mcg-4.5 mcg/actuation aerosol inhaler (Symbicort) prednisone 5 mg tablet See Rx Instructions PO DAILY #60 10/09/21 12/04/21 Unknown Rx tabs sulfasalazine 500 mg tablet See Rx Instructions PO DAILY #60 10/09/21 12/04/21 12/07/21 Rx tabs losartan 25 mg tablet 25 mg PO DAILY #90 tabs 10/15/21 12/04/21 12/07/21 Rx pantoprazole 40 mg tablet,delayed 40 mg PO DAILY 12/04/21 12/04/21 12/07/21 History release (Protonix) levofloxacin 500 mg tablet 250 mg PO DAILY 12/07/21 12/07/21 12/07/21 History Allergies Allergy/AdvReac Type Severity Reaction Status Date / Time No Known Allergies Allergy Verified 12/02/21 10:03 Current Medications Generic Name Dose Route Start Last Admin Trade Name Jsoe Albertoq PRN Reason Stop Dose Admin Sodium Chloride 1,000 mls @ 30 mls/hr 12/08/21 07:15 12/08/21 07:47 Sodium Chloride 0.9% IV 12/09/21 07:14 30 mls/hr .Q24H KAITY Administration PFSH Anesthesia Medical History Allergic rhinitis BIA positive Cervical disc disorder with myelopathy of mid-cervical region Chronic prostatitis Years of longstanding refractory chronic prostatitis with failure to maintain normalcy with weaning of antibiotics. Hiatal hernia Hypertension Intervertebral lumbar disc disorder Plantar fasciitis Surgical History H/O esophagogastroduodenoscopy (09/08/21) History of appendectomy History of back surgery Family History Mother , AT AGE 77 Chronic kidney disease (CKD) Father , AT AGE 92 Stroke Other CAD (coronary artery disease) Cancer Dementia Diabetes Denies family history of Rheumatoid arthritis Lupus Social History Smoking and tobacco status: never smoked Alcohol intake: current Alcohol intake frequency: holidays/special occasions only Lives independently: Yes Household members: spouse Marital status: Current occupational status: employed History of recent travel: Yes Details: Cruise Out of country: Yes Data Anesthesia Cardiac Studies: No Data to Display
[2021-12-08] MEDS: lidocaine 1% INJ 20 mL XX (08:26)
--- NOTE | 2021-12-08 09:04 | PM.OP ---
Operative Report Date of procedure: December 08, 2021 Pre-op diagnosis: Preop Diagnosis Left lower lobe atelectasis Post-op diagnosis: no endobronchial lesion Procedure done: flexible bronchoscopy for airway inspecion for possible endobronchial lesions in pt with elevated? left hemidiaphragm ? leading to left lower lobe and left lingular atelectasis Surgeon: Roel Moran MD [facility] [place] Brief History: 51-year-old male with past medical history of allergic asthma, restriction on PFTs due to elevated left hemidiaphragm causing left lower lobe and left lingular atelectasis. Today I am performing bronchoscopic evaluation to look for any endobronchial lesions causing atelectasis of left lower lobe and left lingula. Procedure: Procedure: Flexible bronchoscopy with airway inspection,and obtaining bronchoalveolar lavage sample Pre-Operative Diagnosis: Elevated left hemidiaphragm causing left lower lobe and left lingular atelectasis Post-Operative Diagnosis: Same; no endobronchial lesion seen Indication: Elevated left hemidiaphragm causing left lower lobe and left lingular atelectasis-to rule out any endobronchial lesions Anesthesia: General manage as per anesthesia team Pre-procedure Evaluation: Patient was evaluated clinically and ancillary testing reviewed. The risk of having active MTB infection is very low in my clinical judgement. ASA: 3 Consent: Consents were obtained from patient and placed in the chart Procedure Details: Time out was performed by the procedure team and nursing staff. Vent support maintained on Fio2 100. The bronchoscope was introduced through the ETT. A bronchoscopic airway exam was performed to evaluate the visible tracheobronchial tree to the segmental level. Summary of Significant Findings: -Bronchoscope passed through ET tube, 1 ml 1% lidocaine instilled into the trachea, 1 mL in both right and left main bronchus. Distal trachea and main jose visualized which were sharp and normal. Then the scope was passed through the right bronchial tree was assessed to include the right mainstem bronchus, RBI, and RUL/RML/RLL bronchi to the segmental and subsegmental levels. No active bleeding noted. Mucosa appeared normal. No secretions noted. Then the scope was left bronchial tree was assessed to include the left mainstem bronchus, AMBREEN, Lingula, and LLL bronchi to the segmental and subsegmental level. No active bleeding noted. Mucosa appeared normal. Did not see any endobronchial lesions in left lower lobe segments or left lingula. There are no mucous plugs. BAL obtained from left lower lobe the bronchoscope was then removed and the procedure terminated. Estimated Blood Loss: None Specimens: Bronchoalveolar lavage was taken from left lower lobe and sent for cell count, cytology and microbiology cultures. Complications:None; patient tolerated the procedure well. Disposition: Stable and can be discharged home Roel Moran MD [facility] [place] Pulmonary critical Care Medicine [facility]
[2021-12-08 09:46] LABS: Apprearance, Bronch Wash Clear (CLEAR); Color, Bronc Wash Colorless
[2021-12-08 09:53] LABS: Bronch Source LEFT LOWER LOBE
[2021-12-08 10:13] LABS: Cyto Order Verification Order Verified
[2021-12-08 11:19] LABS: Total Cells Counted Bronch 200
== END 2021-12-08 09:51 | disposition home or self-care (01) ==
PROVIDERS: PCP Family Medicine; Visit Provider Internal Medicine Pulmonary Disease
PROC: 0BJ08ZZ Inspection of Tracheobronchial Tree, Via Natural or Artificial Opening Endoscopic (ICD-10-PCS; CPT 31622; principal; 2021-12-08 08:30)
DX: J98.11 Atelectasis (principal); I10 Essential (primary) hypertension; K21.9 Gastro-esophageal reflux disease without esophagitis; Z79.52 Long term (current) use of systemic steroids
CPT/HCPCS: 31622; 31624; 80503; 87070; 87205; 88108; 89050; J0330; J1100; J2405; J2704; J7030

== ENCOUNTER 2021-12-10 13:55 | Outpatient (CLI) | payer OTHER, SELFPAY ==
--- NOTE | 2021-12-10 14:03 | XR_ITS ---
WS: [id number] Chest 2 views, 12/10/2021 Clinical Data: increased SOB/edema/productive cough Comparison: PA and lateral chest, 05/05/2021. Findings: No nodules, masses or effusions are seen. The heart is normal. The pulmonary vascularity is not increased. No pneumonia or pneumothorax is seen. The left diaphragm is elevated and unchanged. XR/XR chest 2V* [id number] Impression: Negative chest.
--- NOTE | 2021-12-10 14:42 | FL_ITS ---
WS: [id number] Fluoroscopic sniff test, 12/10/2021 Clinical Data: ELEVATED DIAPHRAGM Fluoroscopy time: 0.4 minutes Comparison: None. Findings: The left diaphragm is elevated. During quiet breathing there is paradoxical motion. The right diaphra gm shows normal motion but the left diaphragm elevates. During the sniff maneuver the right diaphragm descends and the left diaphragm ascends. 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
== END 2021-12-10 13:56 | disposition home or self-care (01) ==
LOC: RAD 13:56
PROVIDERS: PCP Family Medicine; Visit Provider Internal Medicine Pulmonary Disease
DX: J98.6 Disorders of diaphragm (principal); J98.4 Other disorders of lung; R06.02 Shortness of breath
CPT/HCPCS: 71046; 76000

== ENCOUNTER → 2021-12-21 12:58 | Outpatient (BNVA) | payer OTHER, SELFPAY | PROVIDERS: PCP Family Medicine; Visit Provider Internal Medicine | DX: R76.8 Other specified abnormal immunological findings in serum (principal); R79.89 Other specified abnormal findings of blood chemistry; M53.3 Sacrococcygeal disorders, not elsewhere classified; N41.1 Chronic prostatitis; M54.2 Cervicalgia; M48.062 Spinal stenosis, lumbar region with neurogenic claudication; J98.4 Other disorders of lung; M47.816 Spondylosis without myelopathy or radiculopathy, lumbar region | CPT/HCPCS: 80053; 82550; 82728; 83540; 85025; 85651; 86140 ==

== ENCOUNTER → 2022-01-28 11:34 | Outpatient (BNVA) | payer OTHER, SELFPAY | PROVIDERS: PCP Family Medicine; Visit Provider Internal Medicine | DX: J98.4 Other disorders of lung (principal) | CPT/HCPCS: 80053; 82550; 82784; 83516; 83735; 85025; 86003; 86008 ==

== ENCOUNTER 2022-02-18 08:12 | Oncology outpatient (recurring) (ONCR) | payer OTHER, SELFPAY ==
[2022-02-18 10:02] LABS: Basophils % 0.4 %; Eosinophils # 0.1 10^3/uL (0.0-0.8); Eosinophils % 0.9 %; Hematocrit 47.8 % (42.0-52.0); Hemoglobin 15.4 g/dL (11.7-16.6); Lymphocytes # 2.7 10^3/uL (0.8-4.8); Lymphocytes % 48.5 %; Mean Corpuscular HGB Conc 32.2 g/dL (30.0-36.0); Mean Corpuscular Hemoglobin 30.4 pg (28.0-34.0); Mean Corpuscular Volume 94.5 fl (80-94); Mean Platelet Volume 9.2 fL (7.4-10.4); Monocytes # 0.4 10^3/uL (0.2-0.9); Neutrophils # 2.26 10^3/uL (1.8-7.7); Neutrophils % 40.9 %; Nucleated Red Blood Cells % 0 %; Platelet Count 203 10^3/cmm (130-400); Red Blood Count 5.06 10^6/uL (4.1-5.3); Red Cell Distribution Width 11.9 % (12.1-15.1); White Blood Count 5.5 10^3/uL (4.0-10.0)
[2022-02-18 10:04] LABS: Erythrocyte Sedimentation Rate 4 mm/hr (0-10)
[2022-02-18 10:29] LABS: Alanine Aminotransferase 18 U/L (0-41); Albumin Level 4.3 g/dL (3.5-5.2); Alkaline Phosphatase 67 U/L (40-130); Anion Gap 13.3 (5-19); Aspartate Amino Transferase 22 U/L (0-40); Blood Urea Nitrogen 18 mg/dL (6-20); Calcium 8.9 mg/dL (8.5-10.5); Carbon Dioxide 25 mmol/L (22-29); Chloride 106 mmol/L (98-107); Globulin 2.8 g/dL (1.3-4.6); Glomerular Filtration Rate 101.5 mL/min (90-130); Glucose 106 mg/dL (65-115); Osmolality Calculated 292 mOsm/kg (285-295); Potassium 4.3 mmol/L (3.5-5.1); Sodium 140 mmol/L (136-145); Total Bilirubin 0.3 mg/dL (0.15-1.2); Total Protein 7.1 g/dL (6.6-8.7)
[2022-02-18 11:02] LABS: Ferritin 663 ng/mL (30-400); Iron 99 ug/dL (59-158); Percent Saturation 34.8 % (20-50); Total Iron Binding Capacity 284 mcg/dl; Unsaturated Iron Binding 185 ug/dL (112-347)
== END 2022-03-20 23:59 | disposition home or self-care (01) ==
PROVIDERS: PCP Family Medicine; Visit Provider Internal Medicine Medical Oncology
DX: R79.89 Other specified abnormal findings of blood chemistry (principal)
CPT/HCPCS: 36415; 80053; 81256; 82728; 83540; 83550; 85025; 85651; 86140

== ENCOUNTER → 2022-06-03 07:48 | Outpatient (BNVA) | payer OTHER, SELFPAY | PROVIDERS: PCP Family Medicine; Visit Provider Urology | DX: N41.1 Chronic prostatitis (principal) | CPT/HCPCS: 81003 ==

== ENCOUNTER → 2022-06-10 14:30 | Outpatient (BNVA) | payer OTHER, SELFPAY | PROVIDERS: PCP Family Medicine; Visit Provider Internal Medicine | DX: M53.3 Sacrococcygeal disorders, not elsewhere classified (principal); M47.816 Spondylosis without myelopathy or radiculopathy, lumbar region; R79.89 Other specified abnormal findings of blood chemistry | CPT/HCPCS: 36415; 80053; 85025; 85651; 86140; 86480 ==

== ENCOUNTER 2022-06-14 13:03 | Oncology outpatient (recurring) (ONCR) | payer OTHER, SELFPAY ==
[2022-06-14 13:53] LABS: Basophils % 0.5 %; Eosinophils # 0.1 10^3/uL (0.0-0.8); Eosinophils % 2.1 %; Hematocrit 44.7 % (42.0-52.0); Hemoglobin 14.5 g/dL (11.7-16.6); Lymphocytes # 2.9 10^3/uL (0.8-4.8); Lymphocytes % 51.2 %; Mean Corpuscular HGB Conc 32.4 g/dL (30.0-36.0); Mean Corpuscular Hemoglobin 30.5 pg (28.0-34.0); Mean Corpuscular Volume 93.9 fl (80-94); Mean Platelet Volume 9.2 fL (7.4-10.4); Monocytes # 0.5 10^3/uL (0.2-0.9); Monocytes % 8.6 %; Neutrophils % 36.7 %; Nucleated Red Blood Cells % 0 %; Platelet Count 184 10^3/cmm (130-400); Red Blood Count 4.76 10^6/uL (4.1-5.3); White Blood Count 5.7 10^3/uL (4.0-10.0)
[2022-06-14 14:16] LABS: Alanine Aminotransferase 17 U/L (0-41); Albumin Level 4.5 g/dL (3.5-5.2); Alkaline Phosphatase 62 U/L (40-130); Aspartate Amino Transferase 28 U/L (0-40); Blood Urea Nitrogen 13 mg/dL (6-20); Calcium 8.6 mg/dL (8.5-10.5); Carbon Dioxide 25 mmol/L (22-29); Chloride 106 mmol/L (98-107); Ferritin 558 ng/mL (30-400); Globulin 2.4 g/dL (1.3-4.6); Glomerular Filtration Rate 118.4 mL/min (90-130); Glucose 80 mg/dL (65-115); Iron 131 ug/dL (59-158); Osmolality Calculated 293 mOsm/kg (285-295); Percent Saturation 44.5 % (20-50); Sodium 142 mmol/L (136-145); Total Bilirubin 0.4 mg/dL (0.15-1.2); Total Iron Binding Capacity 294 mcg/dl; Total Protein 6.9 g/dL (6.6-8.7); Unsaturated Iron Binding 163 ug/dL (112-347)
[2022-06-14 14:23] LABS: Anion Gap 15.1 (5-19); Potassium 4.1 mmol/L (3.5-5.1)
== END 2022-06-18 23:59 | disposition home or self-care (01) ==
LOC: ONCMED 13:05
PROVIDERS: Nurse Practitioner Family; PCP Family Medicine; Visit Provider Internal Medicine Medical Oncology
DX: R79.89 Other specified abnormal findings of blood chemistry (principal)
CPT/HCPCS: 36415; 80053; 82728; 83540; 83550; 85025

== ENCOUNTER → 2022-08-31 11:19 | Outpatient (BNVA) | payer OTHER, SELFPAY | PROVIDERS: PCP Family Medicine; Visit Provider Internal Medicine | DX: M53.3 Sacrococcygeal disorders, not elsewhere classified (principal); R76.8 Other specified abnormal immunological findings in serum; M54.2 Cervicalgia | CPT/HCPCS: 36415; 80053; 83520; 85025; 85651; 86140 ==

== ENCOUNTER 2022-10-05 11:26 | Oncology outpatient (recurring) (ONCR) | payer OTHER, SELFPAY ==
--- OUTSIDE RECORDS SUMMARY | 2022-10-04 11:36 | XMS_ITS | Patient Health Record ---
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 Name Role Phone Manolo JOYCE, Camila Primary Care Provider Unavailab anayeli Phoenix MD, Uday Unavailable [phone] Salo Dos Santos MD Unavailable Unavailable ALLERGIES Allergen (clinical drug ingredient) Drug/Non Drug Allergy documented on EMR Reaction Allergy Type Onset Date Status oak, pollen (uncoded) Unknown Allergy Active RESULTS Component Value Reference Range Notes Urine tox screen / MS if ind icated Reviewed date:01/11/2022 09:38:14 AM Interpretation: Performing Lab: Notes/Report: Urine tox screen / MS if ind icated Reviewed date:09/08/2022 03:28:44 PM Interpretation:Consistent Performing Lab: Notes/Report: Consistent REASON FOR REFERRAL No Information MEDICATIONS Medication SIG (Take, Route, Frequency, Duration) Notes Start Date End Date Status Advil 200 mg 1 tab orally every 6 hours, as needed Active acetaminophen-hydrocodone 325 mg-10 mg 1/2 - 1 tab po orally Q4H prn pain (max 4/day; hold within 4H of planned sleep) Active levoFLOXacin 500 mg 1 tab orally every 2 4 hours Active acetaminophen-hydrocodone 325 mg-10 mg 1/2 - 1 tab po orally Q4H prn pain (max 4/day; hold within 4H of planned sleep) Active meloxicam 15 mg 1 tab(s) orally once a day for 30 day(s) Active Symbicort 160 mcg-4.5 mcg/inh 2 puffs inhaled 2 times a day Active acetaminophen-hydrocodone 325 mg-10 mg 1/2 - 1 tab po orally Q4H prn pain (max 4/day; hold within 4H of planned sleep) Active leflunomide 10 mg 1 tab orally once a day 09/09/19 Active metoprolol 50 mg 1 tab(s) orally once a day for 30 day(s) 07/06/2022 Active pantoprazole 40 mg 1 tab orally once a day Active predniSONE 5 mg 1 tab orally once a day Active sulfaSALAzine 500 mg 2 tab(s) orally 2 t imes a day for 30 day(s) Active SOCIAL HISTORY Tobacco Use: Social History Observation Description Date Details (start date - stop date) Never Smoker NA - NA Sex Assigned At : Social History Observation Description Sex Assigned At Unknown alcohol Question Answer Notes Did you have a drink contain ing alcohol in the past year? Yes How often did you have a dri nk containing alcohol in the past year? Two to four times a month (2 points) How many drinks did you have on a typical day when you were drinking in the past year? 1 or 2 (0 points) How often did you have six o r more drinks on one occasion in the past year? Never (0 points) Points 2 Interpretation Negative Tobacco use: Question Answer Notes : nonsmoker PROBLEMS Problem Type ICD Code Onset Dates Problem Status W/U Status Risk SNOMED Code Notes Problem Sacroiliitis, not elsewhere classified (M46.1) Active confirmed Solitary sacroiliitis (902583509) Problem Low back pain (M54.5) Active confirmed Low back pain (583754455) Problem Spondylosis without myelopathy or radiculopathy, lumbar region (M47.816) Active confirmed Lumbosacral spondylosis without myelopathy (20418912) Problem watermaster (current) use of opiate analgesic (Z79.891) Active confirmed High risk drug monitoring status (134235857) Problem Other specified anxiety disorders (F41.8) Active confirmed Anxiety disorde r (775329245) Problem Other sleep disorders (G47.8) Active confirmed Sleep diso rder (07289846) Problem Other chronic pain (G89.29) Active confirmed Chronic pain (92861152) Problem Chronic pain syndrome (G89.4) Active confirmed Chronic luana n syndrome (723022410) Problem Spondylolisthesis , lumbar region (M43.16) Active confirmed Acquired spondylolisthesis (678388133) Problem Spondylosis without myelopathy or radiculopathy, cervical region (M47.812) Active confirmed Cervical spondylosis without myelopathy (585677536) Problem Spinal stenosis, cervical region (M48.02) Active confirmed Spinal stenosis in cervical region (65057996) Problem Intervertebral disc disorders with radiculopathy, lumbar region (M51.16) Active confirmed Radiculopathy d ue to lumbar intervertebral disc disorder (078749273904308) Problem Other intervertebral disc disorders, 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) Active confirmed Disorder of intervertebral disc of thoracic spine (656777120) Problem Cervicalgia (M54.2) Active confirmed Cervicalgia (63496105) Problem Pain in thoracic spine (M54.6) Active confirmed Pain in thorac ic spine (560307086) Problem Headache (R51) Active confirmed Headach e (32147164) Problem 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.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) Active confirmed Long-term current use of drug therapy (481927775) Problem Myalgia of auxiliary muscles, head and neck (M79.12) Active confirmed Myalgia (85241914) Problem Myalgia, other site (M79.18) Active confirmed Muscle pain (48385831) Problem Headache, unspecified (R51.9) Active confirmed Headache (15229369) Problem Vertebrogenic low back pain (M54.51) Active confirmed Pain in lumbar spine (753668724) Encounters Encounter Location Date Provider Diagnosis [facility], [address] [id number] 10/07/2021 Uday Phoenix Myalgia of auxiliary muscles, head and neck M79.12 ; Myalgia, other site M79.18 ; Spondylosis without myelopathy or radiculopathy, lumbar region M47.816 ; Intervertebral disc disorders with radiculopathy, lumbar region M51.16 ; Sacroiliitis, not elsewhere classified M46.1 ; Spondylolisthesis, lumbar region M43.16 ; Vertebrogenic low back pain M54.51 ; Spinal stenosis, cervical region M48.02 ; Spondylosis without myelopathy or radiculopathy, cervical region M47.812 ; Cervicalgia M54.2 ; Headache, unspecified R51.9 ; Other intervertebral disc disorders, thoracic region M51.84 ; Pain in thoracic spine M54.6 ; Other sleep disorders G47.8 and longterm (current) use of opiate analgesic Z79.891 [facility], [facility] [address] [place], [place] [id number] 12/31/2021 Uday Phoenix Spondylosis without myelopathy or radiculopathy, lumbar region M47.816 ; Other specified anxiety disorders F41.8 ; Myalgia of auxiliary muscles, head and neck M79.12 ; Myalgia, other site M79.18 ; Intervertebral disc disorders with radiculopathy, lumbar region M51.16 ; Sacroiliitis, not elsewhere classified M46.1 ; Spondylolisthesis, lumbar region M43.16 ; Vertebrogenic low back pain M54.51 ; Cervicalgia M54.2 ; Spinal stenosis, cervical region M48.02 ; Spondylosis without myelopathy or radiculopathy, cervical region M47.812 ; Headache, unspecified R51.9 ; Pain in thoracic spine M54.6 ; Other intervertebral disc disorders, thoracic region M51.84 ; Other sleep disorders G47.8 and longterm (current) use of opiate analgesic Z79.891 [facility] [employer] [address] [place] [address] 01/18/2022 Uday Phoenix Spondylosis without myelopathy or radiculopathy, lumbar region M47.816 and Other specified anxiety disorders F41.8 [facility], [facility] [address] [place], [place] [id number] 02/01/2022 Uday Phoenix [facility], [facility] [address] [place], [place] [id number] 02/25/2022 Uday Phoenix Spondylosis without myelopathy or radiculopathy, lumbar region M47.816 ; Myalgia of auxiliary muscles, head and neck M79.12 ; Myalgia, other site M79.18 ; Intervertebral disc disorders with radiculopathy, lumbar region M51.16 ; Sacroiliitis, not elsewhere classified M46.1 ; Spondylolisthesis, lumbar region M43.16 ; Vertebrogenic low back pain M54.51 ; Cervicalgia M54.2 ; Spinal stenosis, cervical region M48.02 ; Spondylosis without myelopathy or radiculopathy, cervical region M47.812 ; Headache, unspecified R51.9 ; Pain in thoracic spine M54.6 ; Other intervertebral disc disorders, thoracic region M51.84 ; Other sleep disorders G47.8 and watermaster (current) use of opiate analgesic Z79.891 [facility], [facility] [address] [place], [place] [id number] 03/24/2022 Uday Phoenix [facility], [facility] [address] [place], [place] [id number] 04/08/2022 Uday Phoenix Myalgia of auxiliary muscles, head and neck M79.12 ; Myalgia, other site M79.18 ; Spondylosis without myelopathy or radiculopathy, lumbar region M47.816 ; Intervertebral disc disorders with radiculopathy, lumbar region M51.16 ; Sacroiliitis, not elsewhere classified M46.1 ; Spondylolisthesis, lumbar region M43.16 ; Vertebrogenic low back pain M54.51 ; Cervicalgia M54.2 ; Spinal stenosis, cervical region M48.02 ; Spondylosis without myelopathy or radiculopathy, cervical region M47.812 ; Headache, unspecified R51.9 ; Pain in thoracic spine M54.6 ; Other intervertebral disc disorders, thoracic region M51.84 ; Other sleep disorders G47.8 and watermaster (current) use of opiate analgesic Z79.891 [facility], [facility] [address] [place], [place] [id number] 07/06/2022 Uday Phoenix Myalgia, other site M79.18 ; Spondylosis without myelopathy or radiculopathy, lumbar region M47.816 ; Intervertebral disc disorders with radiculopathy, lumbar region M51.16 ; Sacroiliitis, not elsewhere classified M46.1 ; Spondylolisthesis, lumbar region M43.16 ; Vertebrogenic low back pain M54.51 ; Myalgia of auxiliary muscles, head and neck M79.12 ; Cervicalgia M54.2 ; Spinal stenosis, cervical region M48.02 ; Spondylosis without myelopathy or radiculopathy, cervical region M47.812 ; Headache, unspecified R51.9 ; Pain in thoracic spine M54.6 ; Other intervertebral disc disorders, thoracic region M51.84 ; Other sleep disorders G47.8 and longterm (current) use of opiate analgesic Z79.891 [facility] [address] [place], [place] [id number] 09/08/2022 Uday Alban Myalgia, other site M79.18 ; Spondylosis without myelopathy or radiculopathy, lumbar region M47.816 ; Intervertebral disc disorders with radiculopathy, lumbar region M51.16 ; Sacroiliitis, not elsewhere classified M46.1 ; Spondylolisthesis, lumbar region M43.16 ; Vertebrogenic low back pain M54.51 ; Myalgia of auxiliary muscles, head and neck M79.12 ; Cervicalgia M54.2 ; Spinal stenosis, cervical region M48.02 ; Spondylosis without myelopathy or radiculopathy, cervical region M47.812 ; Headache, unspecified R51.9 ; Pain in thoracic spine M54.6 ; Other intervertebral disc disorders, thoracic region M51.84 ; Other chronic pain G89.29 ; Other sleep disorders G47.8 and longterm (current) use of opiate analgesic Z79.891 ASSESSMENTS Encounter Date Diagnosis Assessment Notes Treatment Notes Treatment Clinical Notes 10/07/2021 Myalgia of auxiliary muscles, head and neck (ICD-10 - M79.12) TPIs with history of efficacy to include prolonged headache symptom benefit. Plan TPIs at today's visit 10/07/2021 Myalgia, other site (ICD-10 - M79.18) Most prior TPIs with history of efficacy appreciated. Patient has previously reported great benefit that included lower extremity pain relief post a TPI session that included left piriformis block. Plan TPIs at today's visit 12/31/2021 Spondylosis without myelopathy or radiculopathy, lumbar region (ICD-10 - M47.816) Bilateral T12, bilateral L1, and bilateral L2 medial branch RFA procedure with history of maintained efficacy appreciated. Bilateral low to mid lumbar RFA procedures with history of repeated efficacy appreciated. The benefits in the lower lumbar spine have since waned post the most recent set of bilateral lumbar RFA procedures. 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 Plan repeat RFA: bilateral L3, bilateral L4 medial branch, bilateral L5 dorsal ramus. Risks, benefits, and alternatives reviewed with patient. Questions answered to the patient's reported satisfaction. Preparation for procedure reviewed with patient; printed instructions declined 12/31/2021 Other specified anxiety disorders (ICD-10 - F41.8) Plan monitored anesthesia care 01/18/2022 Spondylosis without myelopathy or radiculopathy, lumbar region (ICD-10 - M47.816) Plan bilateral lumbar RFA of L3, L4 medial branch and L5 dorsal ramus 02/25/2022 Spondylosis without myelopathy or radiculopathy, lumbar region (ICD-10 - M47.816) Bilateral T12, bilateral L1, and bilateral L2 medial branch RFA procedure with history of maintained efficacy appreciated. Bilateral low to mid lumbar RFA procedures with history of repeated efficacy appreciated. The most recent procedure with maintained benefit thus far 02/25/2022 Myalgia of auxiliary muscles, head and neck (ICD-10 - M79.12) TPIs with history of efficacy to include prolonged headache symptom benefit 04/08/2022 Myalgia of auxiliary muscles, head and neck (ICD-10 - M79.12) TPIs with history of efficacy to include prolonged headache symptom benefit (no return of headaches as of 04/08/22). Plan TPIs at today's visit 04/08/2022 Myalgia, other site (ICD-10 - M79.18) Most prior TPIs with history of efficacy appreciated. Patient has previously reported great benefit that included lower extremity pain relief post a TPI session that included left piriformis block 07/06/2022 Spondylosis without myelopathy or radiculopathy, lumbar region (ICD-10 - M47.816) Bilateral mid to upper lumbar medial branch RFA procedure with history of maintained efficacy appreciated. Bilateral low to mid lumbar RFA procedures with history of repeated efficacy appreciated by patient 07/06/2022 Myalgia, other site (ICD-10 - M79.18) Most prior TPIs with history of efficacy appreciated. Plan TPIs at today's visit. Patient has previously reported great benefit that included lower extremity pain relief post a TPI session that included left piriformis block 09/08/2022 Spondylosis without myelopathy or radiculopathy, lumbar region (ICD-10 - M47.816) 09/08/2022 Myalgia, other site (ICD-10 - M79.18) Most prior TPIs with history of efficacy appreciated. Plan TPIs at today's visit. Patient has previously reported great benefit that included lower extremity pain relief post a TPI session that included left piriformis block 09/08/2022 Intervertebral disc disorders with radiculopathy, lumbar region (ICD-10 - M51.16) 07/06/2022 Intervertebral disc disorders with radiculopathy, lumbar region (ICD-10 - M51.16) Initial L5-S1 PHILLIP with history of efficacy appreciated inferiorly in lumbar spine and for radicular symptoms. Repeat injection just helped axial pain and not limb pain, although, subsequent TPI of piriformis resolved the limb pain for a while. Prior attempts at L1-2 LESI resulted in apparent intra-dural needle tip placements (procedure aborted). Most recent L5-S1 with great short - term benefit for axial and LLE pain. Written and AV information regarding DCS trial / placement given to patient at 06/19/20 visit. Patient informed at 06/24/20 visit that he will not qualify for DCS per his insurer's ([employer]) guidelines. Patient's new insurer may have similar limitations. Patient reported of visit with Dr. Cunningham, orthopedic spine surgeon, whereby lumbar surgery was performed 02/25/2022 Myalgia, other site (ICD-10 - M79.18) Most prior TPIs with history of efficacy appreciated. Patient has previously reported great benefit that included lower extremity pain relief post a TPI session that included left piriformis block 04/08/2022 Spondylosis without myelopathy or radiculopathy, lumbar region (ICD-10 - M47.816) Bilateral T12, bilateral L1, and bilateral L2 medial branch RFA procedure with history of maintained efficacy appreciated. Bilateral low to mid lumbar RFA procedures with history of repeated efficacy appreciated 01/18/2022 Other specified anxiety disorders (ICD-10 - F41.8) Plan monitored anesthesia care 12/31/2021 Myalgia of auxiliary muscles, head and neck (ICD-10 - M79.12) TPIs with history of efficacy to include prolonged headache symptom benefit 10/07/2021 Spondylosis without myelopathy or radiculopathy, lumbar region (ICD-10 - M47.816) Bilateral T12, bilateral L1, and bilateral L2 medial branch RFA procedure with history of maintained efficacy appreciated. Bilateral low to mid lumbar RFA procedures with history of repeated efficacy appreciated. The benefits at the base of the spine have since waned post the most recent lumbar RFA procedure. Consider bilateral L4 medial branch, bilateral L5 dorsal ramus diagnostic blocks as needed / desired by patient. Consider repeat / confirmatory blocks (as required by patient's insurer), and possible RFA, pending outcome of diagnostic blocks. Patient has deferred on this treatment option and he will return to this clinic when interested in pursuing these interventions. Risks, benefits, and alternatives reviewed with patient at prior visits. 10/07/2021 Intervertebral disc disorders with radiculopathy, lumbar region (ICD-10 - M51.16) Initial L5-S1 PHILLIP with history of efficacy appreciated inferiorly in lumbar spine and for radicular symptoms. Repeat injection just helped axial pain and not limb pain, although, subsequent TPI of piriformis resolved the limb pain for a while. Prior attempts at L1-2 LESI resulted in apparent intra-dural needle tip placements (procedure aborted). Most recent L5-S1 with great short - term benefit for axial and LLE pain. Written and AV information regarding DCS trial / placement given to patient at 06/19/20 visit. Patient informed at 06/24/20 visit that he will not qualify for DCS per his insurer's ([employer]) guidelines. Patient's new insurer may have similar limitations. Patient reported of visit with Dr. Cunningham, orthopedic spine surgeon, whereby lumbar surgery was performed 12/31/2021 Myalgia, other site (ICD-10 - M79.18) Most prior TPIs with history of efficacy appreciated. Patient has previously reported great benefit that included lower extremity pain relief post a TPI session that included left piriformis block 02/25/2022 Intervertebral disc disorders with radiculopathy, lumbar region (ICD-10 - M51.16) Initial L5-S1 PHILLIP with history of efficacy appreciated inferiorly in lumbar spine and for radicular symptoms. Repeat injection just helped axial pain and not limb pain, although, subsequent TPI of piriformis resolved the limb pain for a while. Prior attempts at L1-2 LESI resulted in apparent intra-dural needle tip placements (procedure aborted). Most recent L5-S1 with great short - term benefit for axial and LLE pain. Written and AV information regarding DCS trial / placement given to patient at 06/19/20 visit. Patient informed at 06/24/20 visit that he will not qualify for DCS per his insurer's ([employer]) guidelines. Patient's new insurer may have similar limitations. Patient reported of visit with Dr. Cunningham, orthopedic spine surgeon, whereby lumbar surgery was performed 04/08/2022 Intervertebral disc disorders with radiculopathy, lumbar region (ICD-10 - M51.16) Initial L5-S1 PHILLIP with history of efficacy appreciated inferiorly in lumbar spine and for radicular symptoms. Repeat injection just helped axial pain and not limb pain, although, subsequent TPI of piriformis resolved the limb pain for a while. Prior attempts at L1-2 LESI resulted in apparent intra-dural needle tip placements (procedure aborted). Most recent L5-S1 with great short - term benefit for axial and LLE pain. Written and AV information regarding DCS trial / placement given to patient at 06/19/20 visit. Patient informed at 06/24/20 visit that he will not qualify for DCS per his insurer's ([employer]) guidelines. Patient's new insurer may have similar limitations. Patient reported of visit with Dr. Cunningham, orthopedic spine surgeon, whereby lumbar surgery was performed 07/06/2022 Sacroiliitis, not elsewhere classified (ICD-10 - M46.1) Consider interventions as needed / desired by patient. Patient previously deferred on SI joint injections. Patient has since stated that Dr. Cunningham (orthopedic spine surgeon) thinks he has some sacral pain. Will consider interventions as needed / desired by patient 09/08/2022 Sacroiliitis, not elsewhere classified (ICD-10 - M46.1) 09/08/2022 Spondylolisthesis, lumbar region (ICD-10 - M43.16) 07/06/2022 Spondylolisthesis, lumbar region (ICD-10 - M43.16) 04/08/2022 Sacroiliitis, not elsewhere classified (ICD-10 - M46.1) Consider interventions as needed / desired by patient. Patient previously deferred on SI joint injections. Patient has since stated that Dr. Cunningham thinks he has some sacral pain. Will consider interventions as needed / desired by patient 02/25/2022 Sacroiliitis, not elsewhere classified (ICD-10 - M46.1) Consider interventions as needed / desired by patient. Patient previously deferred on SI joint injections. Patient has since stated that Dr. Cunningham thinks he has some sacral pain. Will consider interventions pending outcome of lumbar RFA procedure 10/07/2021 Sacroiliitis, not elsewhere classified (ICD-10 - M46.1) Consider interventions as needed / desired by patient. Patient previously deferred on SI joint injections 12/31/2021 Intervertebral disc disorders with radiculopathy, lumbar region (ICD-10 - M51.16) Initial L5-S1 PHILLIP with history of efficacy appreciated inferiorly in lumbar spine and for radicular symptoms. Repeat injection just helped axial pain and not limb pain, although, subsequent TPI of piriformis resolved the limb pain for a while. Prior attempts at L1-2 LESI resulted in apparent intra-dural needle tip placements (procedure aborted). Most recent L5-S1 with great short - term benefit for axial and LLE pain. Written and AV information regarding DCS trial / placement given to patient at 06/19/20 visit. Patient informed at 06/24/20 visit that he will not qualify for DCS per his insurer's ([employer]) guidelines. Patient's new insurer may have similar limitations. Patient reported of visit with Dr. Cunningham, orthopedic spine surgeon, whereby lumbar surgery was performed 12/31/2021 Sacroiliitis, not elsewhere classified (ICD-10 - M46.1) Consider interventions as needed / desired by patient. Patient previously deferred on SI joint injections. Patient has since stated that Dr. Cunningham thinks he has some sacral pain. Will consider interventions pending outcome of lumbar RFA procedure 10/07/2021 Spondylolisthesis, lumbar region (ICD-10 - M43.16) 02/25/2022 Spondylolisthesis, lumbar region (ICD-10 - M43.16) 04/08/2022 Spondylolisthesis, lumbar region (ICD-10 - M43.16) 07/06/2022 Vertebrogenic low back pain (ICD-10 - M54.51) 09/08/2022 Vertebrogenic low back pain (ICD-10 - M54.51) 09/08/2022 Myalgia of auxiliary muscles, head and neck (ICD-10 - M79.12) Plan TPIs at today's visit. The prolonged headache benefit from a prior round of TPIs has now waned: plan TPIs to C2-3 and suboccipital areas at today's visit 07/06/2022 Myalgia of auxiliary muscles, head and neck (ICD-10 - M79.12) TPIs with history of efficacy to include prolonged headache symptom benefit (no return of headaches as of 04/08/22) 04/08/2022 Vertebrogenic low back pain (ICD-10 - M54.51) 02/25/2022 Vertebrogenic low back pain (ICD-10 - M54.51) 10/07/2021 Vertebrogenic low back pain (ICD-10 - M54.51) 12/31/2021 Spondylolisthesis, lumbar region (ICD-10 - M43.16) 10/07/2021 Spinal stenosis, cervical region (ICD-10 - M48.02) C7-T1 CESIs with history of efficacy appreciated to include radicular symptom improvement. Written and AV information regarding DCS trial / placement given to patient at 06/19/20 visit. Patient informed at 06/24/20 visit that he will not qualify for DCS per his insurer's ([employer]) guidelines 04/08/2022 Cervicalgia (ICD-10 - M54.2) Patient has been evaluated at Dr. Dos Santos's office (neurosurgery) as per prior patient report. Do not anticipate offering patient any additional fluoroscope - guided minimally invasive interventional spine treatment for cervical spine via this facility (prior scope of practice change by this provider). Would be happy to refer patient to another interventional treatment provider if patient were to desire additional such treatment (patient has previously deferred on this treatment option). 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 Patient has started his home exercise program (HEP), an insurance company requirement for possible cervical MRI, as given patient by Dr. Kay. He has been performing the HEP for one week as of 04/08/22. Recommended patient follow up with Dr. Kay regarding the HEP and possible cervical MRI order 02/25/2022 Cervicalgia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
[2022-10-04 11:39] VITALS: BP 162/93; PULSE 75; RESP 18; TEMP 36.4; O2SAT 97
[2022-10-04 11:50] LABS: Basophils % 0.7 %; Eosinophils # 0.1 10^3/uL (0.0-0.8); Eosinophils % 1.3 %; Hematocrit 47.2 % (42.0-52.0); Hemoglobin 15.7 g/dL (11.7-16.6); Lymphocytes # 2.7 10^3/uL (0.8-4.8); Lymphocytes % 44.6 %; Mean Corpuscular HGB Conc 33.3 g/dL (30.0-36.0); Mean Corpuscular Volume 93.1 fl (80-94); Mean Platelet Volume 8.9 fL (7.4-10.4); Monocytes # 0.5 10^3/uL (0.2-0.9); Monocytes % 8.2 %; Neutrophils # 2.65 10^3/uL (1.8-7.7); Neutrophils % 44.7 %; Nucleated Red Blood Cells % 0 %; Platelet Count 193 10^3/cmm (130-400); Red Blood Count 5.07 10^6/uL (4.1-5.3); Red Cell Distribution Width 11.8 % (12.1-15.1); White Blood Count 5.9 10^3/uL (4.0-10.0)
[2022-10-04 12:07] LABS: Alanine Aminotransferase 19 U/L (0-41); Albumin Level 4.6 g/dL (3.5-5.2); Alkaline Phosphatase 62 U/L (40-130); Anion Gap 15.4 (5-19); Aspartate Amino Transferase 18 U/L (0-40); Blood Urea Nitrogen 12 mg/dL (6-20); Calcium 9.1 mg/dL (8.5-10.5); Carbon Dioxide 24 mmol/L (22-29); Chloride 105 mmol/L (98-107); Globulin 2.9 g/dL (1.3-4.6); Glomerular Filtration Rate 88.3 mL/min (90-130); Glucose 102 mg/dL (65-115); Osmolality Calculated 290 mOsm/kg (285-295); Potassium 4.4 mmol/L (3.5-5.1); Sodium 140 mmol/L (136-145); Total Bilirubin 0.4 mg/dL (0.15-1.2); Total Protein 7.5 g/dL (6.6-8.7)
[2022-10-04 12:23] LABS: Ferritin 572 ng/mL (30-400); Iron 127 ug/dL (59-158); Percent Saturation 42.4 % (20-50); Total Iron Binding Capacity 299 mcg/dl; Unsaturated Iron Binding 172 ug/dL (112-347)
== END 2022-10-18 23:59 | disposition home or self-care (01) ==
PROVIDERS: Nurse Practitioner Family; PCP Family Medicine; Visit Provider Internal Medicine Medical Oncology
DX: Z53.9 Procedure and treatment not carried out, unspecified reason (principal)
CPT/HCPCS: 36415; 80053; 82728; 83540; 83550; 85025; 86140

== ENCOUNTER 2023-01-03 09:12 | Outpatient (CLI) | payer OTHER, SELFPAY ==
[2023-01-03 09:30] LABS: Basophils % 0.7 %; Eosinophils # 0.1 10^3/uL (0.0-0.8); Hematocrit 45.6 % (37-53); Lymphocytes # 2.2 10^3/uL (0.8-4.8); Lymphocytes % 46.9 %; Mean Corpuscular HGB Conc 32.2 g/dL (30-55); Mean Corpuscular Hemoglobin 30.5 pg (27-33); Mean Corpuscular Volume 94.6 fl (82-101); Mean Platelet Volume 9.4 fL (7.4-10.4); Monocytes # 0.6 10^3/uL (0.2-0.9); Monocytes % 12.2 %; Neutrophils # 1.67 10^3/uL (1.8-7.7); Neutrophils % 36.5 %; Nucleated Red Blood Cells % 0 %; Platelet Count 184 10^3/cmm (157-399); Red Blood Count 4.82 10^6/uL (3.85-5.65); Red Cell Distribution Width 11.9 % (12.1-15.1); White Blood Count 4.58 10^3/uL (3.29-11.43)
[2023-01-03 09:49] LABS: Alanine Aminotransferase 25 U/L (0-41); Albumin Level 4.5 g/dL (3.5-5.2); Alkaline Phosphatase 64 U/L (40-130); Anion Gap 14.3 (5-19); Aspartate Amino Transferase 26 U/L (0-40); Blood Urea Nitrogen 14 mg/dL (6-20); Carbon Dioxide 26 mmol/L (22-29); Chloride 104 mmol/L (98-107); Globulin 2.6 g/dL (1.3-4.6); Glomerular Filtration Rate 88.3 mL/min (90-130); Glucose 161 mg/dL (65-115); Osmolality Calculated 294 mOsm/kg (285-295); Potassium 4.3 mmol/L (3.5-5.1); Sodium 140 mmol/L (136-145); Total Bilirubin 0.5 mg/dL (0.15-1.2); Total Protein 7.1 g/dL (6.6-8.7)
[2023-01-03 09:57] LABS: Erythrocyte Sedimentation Rate 15 mm/hr (0-10)
[2023-01-10 02:15] LABS: 14.3.3 ETA Protein <0.2 ng/mL (<0.2)
== END 2023-01-03 09:13 | disposition home or self-care (01) ==
LOC: LAB 09:14
PROVIDERS: Internal Medicine; PCP Family Medicine; Visit Provider Family Medicine
DX: I10 Essential (primary) hypertension (principal)
CPT/HCPCS: 36415; 80053; 83520; 85025; 85651; 86140

== ENCOUNTER 2023-01-19 13:36 | Outpatient (CLI) | payer OTHER, SELFPAY ==
[2023-01-19 14:54] LABS: Prostate Specific Antigen 0.357 ng/mL (0-4)
== END 2023-01-19 13:37 | disposition home or self-care (01) ==
PROVIDERS: PCP Family Medicine; Visit Provider Urology
DX: N41.1 Chronic prostatitis (principal)
CPT/HCPCS: 36415; 84153

== ENCOUNTER 2023-04-12 13:36 | Oncology outpatient (recurring) (ONCR) | payer OTHER, SELFPAY ==
[2023-04-12 14:11] VITALS: BP 134/84; PULSE 65; RESP 17; TEMP 36.9; O2SAT 94
[2023-04-12 15:03] LABS: Basophils % 0.3 %; Eosinophils # 0.1 10^3/uL (0.0-0.8); Eosinophils % 1.2 %; Hematocrit 42.5 % (37-53); Lymphocytes # 3.2 10^3/uL (0.8-4.8); Lymphocytes % 53.7 %; Mean Corpuscular HGB Conc 32.5 g/dL (30-55); Mean Corpuscular Hemoglobin 31.1 pg (27-33); Mean Corpuscular Volume 95.7 fl (82-101); Mean Platelet Volume 9.7 fL (7.4-10.4); Monocytes # 0.7 10^3/uL (0.2-0.9); Monocytes % 11.8 %; Neutrophils # 1.93 10^3/uL (1.8-7.7); Neutrophils % 32.5 %; Nucleated Red Blood Cells % 0 %; Platelet Count 207 10^3/cmm (157-399); Red Blood Count 4.44 10^6/uL (3.85-5.65); Red Cell Distribution Width 11.9 % (12.1-15.1); White Blood Count 5.94 10^3/uL (3.29-11.43)
[2023-04-12 15:19] LABS: Erythrocyte Sedimentation Rate 4 mm/hr (0-10)
[2023-04-12 15:23] LABS: Alanine Aminotransferase 22 U/L (0-41); Albumin Level 4.4 g/dL (3.5-5.2); Alkaline Phosphatase 50 U/L (40-130); Anion Gap 13.1 (5-19); Aspartate Amino Transferase 21 U/L (0-40); Blood Urea Nitrogen 14 mg/dL (6-20); Calcium 8.9 mg/dL (8.5-10.5); Carbon Dioxide 26 mmol/L (22-29); Chloride 105 mmol/L (98-107); Globulin 2.6 g/dL (1.3-4.6); Glomerular Filtration Rate 101.1 mL/min (90-130); Glucose 80 mg/dL (65-115); Iron 126 ug/dL (59-158); Osmolality Calculated 289 mOsm/kg (285-295); Percent Saturation 45.4 % (20-50); Potassium 4.1 mmol/L (3.5-5.1); Sodium 140 mmol/L (136-145); Total Bilirubin 0.5 mg/dL (0.15-1.2); Total Iron Binding Capacity 277 mcg/dl; Unsaturated Iron Binding 151 ug/dL (112-347)
[2023-04-12 15:36] LABS: Ferritin 1379 ng/mL (30-400)
== END 2023-04-20 23:59 | disposition home or self-care (01) ==
PROVIDERS: PCP Family Medicine; Visit Provider Internal Medicine Medical Oncology
DX: Z53.9 Procedure and treatment not carried out, unspecified reason (principal); R79.89 Other specified abnormal findings of blood chemistry; Z79.899 Other long term (current) drug therapy
CPT/HCPCS: 36415; 80053; 82728; 83540; 83550; 85025; 85651; 86140

== ENCOUNTER 2023-04-27 07:53 | Day surgery (SDC) | payer OTHER, SELFPAY ==
[2023-04-27 08:10] VITALS: BP 166/103; PULSE 91; RESP 18; TEMP 36.1; O2SAT 97
[2023-04-27] MEDS: sodium chloride 0.9% 1,000 ML 30 ML IV (08:21)
--- NOTE | 2023-04-27 08:40 | P.ANESASSM_ITS ---
Pre-Anesthetic Assessment Height/Weight: Height 1.78 m Weight 90.718 kg Temp Pulse Resp BP Pulse Ox O2 Del Method 97.0 F L 91 18 166/103 97 Room Air 04/27/23 08:10 04/27/23 08:10 04/27/23 08:10 04/27/23 08:10 04/27/23 08:10 04/27/23 08:10 Operation Date: 04/27/23 09:00 Proposed Procedures p Colonoscopy 45210,J98.6(Not Applicable) - Harry Huerta, DO Was Beta Toby taken within 24 hours: Yes Last intake: Intake Last Liquid Date 04/26/23 Last Liquid Time 20:00 Last Solid Date 04/25/23 Last Solid Time 18:00 Social No alcohol and No tobacco Exam alert, oriented x 3, clear to auscultation bilaterally and regular rate & rhythm Airway Submandibular: within normal limits Cervical ROM: within normal limits Mallampati: Class II History/ROS No significant history except as noted and No significant complaints Pulmonary Asthma CV/HEM Hypertension None reported Hepatic None reported GI None reported Metabolic None reported Musc/skel None reported Neuropsych None reported Anesthetic Plan ASA status: 2 Anesthesia: MAC and Regional (specify below) Risk of > 500 ml blood loss (7ml/kg in children): Yes, adequate IV access and fluids planned Medications/Allergies Home Medications Medication Instructions Recorded Confirmed Last Taken Type hydrocodone 10 mg-acetaminophen 1 tab PO BID PRN Pain 06/25/20 04/25/23 04/26/23 History 325 mg tablet albuterol sulfate 90 mcg/actuation 2 puff inhalation Q6H PRN 09/22/21 04/25/23 04/26/23 Rx aerosol inhaler shortness of breath or wheezing #8.5 grams budesonide-formoterol HFA 160 2 puff inhalation BID #10.2 grams 09/22/21 04/25/23 04/26/23 Rx mcg-4.5 mcg/actuation aerosol inhaler (Symbicort) leflunomide 20 mg tablet 20 mg PO DAILY #30 tabs 12/02/22 04/25/23 04/26/23 Rx meloxicam 15 mg tablet 15 mg PO DAILY #30 tabs 12/02/22 04/25/23 1 Week Ago Rx ~04/18/23 sulfasalazine 500 mg tablet 1 g (2 x 500 mg) PO BID #120 tabs 12/02/22 04/25/23 04/26/23 Rx gabapentin 100 mg capsule 100 mg PO .hs #30 caps 04/08/23 04/25/23 04/26/23 Rx ciprofloxacin HCl 500 mg tablet 500 mg PO DAILY 04/25/23 04/25/23 04/26/23 History hydrochlorothiazide 12.5 mg tablet 12.5 mg PO DAILY 04/25/23 04/25/23 04/26/23 History metoprolol tartrate 50 mg tablet 50 mg PO BID 04/25/23 04/25/23 04/26/23 History Allergies Allergy/AdvReac Type Severity Reaction Status Date / Time No Known Allergies Allergy Verified 04/12/23 15:02 Current Medications Generic Name Dose Route Start Last Admin Trade Name Freq PRN Reason Stop Dose Admin Sodium Chloride 1,000 mls @ 30 mls/hr 04/27/23 08:00 04/27/23 08:21 Sodium Chloride 0.9% IV 04/28/23 07:59 30 mls/hr .Q24H KAITY Administration PFSH Anesthesia Medical History [place] stomach BIA positive Hiatal hernia Allergic rhinitis Plantar fasciitis Chronic prostatitis Years of longstanding refractory chronic prostatitis with failure to maintain normalcy with weaning of antibiotics. Cervical disc disorder with myelopathy of mid-cervical region Hypertension Intervertebral lumbar disc disorder Surgical History H/O esophagogastroduodenoscopy (09/08/21) History of back surgery (04/13/21) Left L4/5 laminectomy with partial facetectomy and discectomy History of appendectomy Family History Mother , AT AGE 77 Chronic kidney disease (CKD) Father , AT AGE 92 Stroke Other CAD (coronary artery disease) Cancer Dementia Diabetes Denies family history of Rheumatoid arthritis Lupus Social History Smoking and tobacco/nicotine status: never used tobacco/nicotine Alcohol intake: current Alcohol intake frequency: holidays/special occasions only Substance/Drug Use: never Lives independently: Yes Household members: spouse Marital status: Current occupational status: employed Data Anesthesia Cardiac Studies: No Data to Display
--- NOTE | 2023-04-27 08:55 | W.PM.OPSUD ---
Surgery/Procedure H&P Update DATE OF PROCEDURE: April 27, 2023 DATE H&P PERFORMED: 04/05/23 H&P UPDATE INFORMATION: I have reviewed H&P completed within last 30 days, I have examined patient prior to procedure and No changes to prior documentation PLANNED PROCEDURE: Operation Date: 04/27/23 09:00 Proposed Procedures p Colonoscopy 66236,J98.6(Not Applicable) - Harry Huerta, DO
[2023-04-27 09:13] VITALS: BP 127/78; PULSE 76; RESP 18; TEMP 36.4; O2SAT 97
[2023-04-27 09:29] VITALS: BP 126/97; PULSE 70; RESP 18; O2SAT 97
--- NOTE | 2023-04-27 09:40 | ANE.PACU2 ---
Inpatient post-anesthesia follow up: Airway intact: Yes Vital signs: Temperature 97.5 F Pulse Rate 70 Respiratory Rate 18 Blood Pressure 126/97 Pulse Oximetry 97 Oxygen Delivery Me thod Room Air Oxygen Flow Rate Fraction of Inspir ed Oxygen Hydration adequate: Yes Nausea and vomiting: No Pain level: 1 Mental status: Baseline
== END 2023-04-27 09:44 | disposition home or self-care (01) ==
PROVIDERS: PCP Family Medicine; Visit Provider Surgery
PROC: 0DJD8ZZ Inspection of Lower Intestinal Tract, Via Natural or Artificial Opening Endoscopic (ICD-10-PCS; CPT 45378; principal; 2023-04-27 09:00)
DX: Z12.11 Encounter for screening for malignant neoplasm of colon (principal); K64.1 Second degree hemorrhoids; J98.6 Disorders of diaphragm; I10 Essential (primary) hypertension
CPT/HCPCS: 45378; J2704; J7030

== ENCOUNTER → 2023-05-24 08:19 | Outpatient (BNVA) | payer OTHER, SELFPAY | PROVIDERS: PCP Family Medicine; Referring Provider Family Medicine; Visit Provider Student in an Organized Health Care Education/Training Program | DX: M75.21 Bicipital tendinitis, right shoulder (principal); R20.0 Anesthesia of skin; R20.2 Paresthesia of skin; M77.11 Lateral epicondylitis, right elbow | CPT/HCPCS: 73030 ==

== ENCOUNTER 2023-07-06 13:12 | Oncology outpatient (recurring) (ONCR) | payer OTHER, SELFPAY ==
[2023-07-06 13:47] LABS: Basophils % 0.8 %; Eosinophils # 0.1 10^3/uL (0.0-0.8); Eosinophils % 1.3 %; Lymphocytes # 2.3 10^3/uL (0.8-4.8); Lymphocytes % 44.4 %; Mean Corpuscular HGB Conc 32.6 g/dL (30-55); Mean Platelet Volume 9.7 fL (7.4-10.4); Monocytes # 0.5 10^3/uL (0.2-0.9); Monocytes % 9.4 %; Neutrophils # 2.28 10^3/uL (1.8-7.7); Neutrophils % 43.7 %; Nucleated Red Blood Cells % 0 %; Platelet Count 197 10^3/cmm (157-399); Red Blood Count 4.42 10^6/uL (3.85-5.65); Red Cell Distribution Width 12.1 % (12.1-15.1); White Blood Count 5.22 10^3/uL (3.29-11.43)
[2023-07-06 14:01] LABS: Alanine Aminotransferase 12 U/L (0-41); Albumin Level 4.7 g/dL (3.5-5.2); Alkaline Phosphatase 61 U/L (40-130); Anion Gap 13.7 (5-19); Aspartate Amino Transferase 23 U/L (0-40); Blood Urea Nitrogen 18 mg/dL (6-20); Calcium 9.2 mg/dL (8.5-10.5); Carbon Dioxide 25 mmol/L (22-29); Chloride 106 mmol/L (98-107); Ferritin 914 ng/mL (30-400); Globulin 2.6 g/dL (1.3-4.6); Glomerular Filtration Rate 100.7 mL/min (90-130); Glucose 102 mg/dL (65-115); Iron 135 ug/dL (59-158); Osmolality Calculated 294 mOsm/kg (285-295); Percent Saturation 47.5 % (20-50); Potassium 3.7 mmol/L (3.5-5.1); Sodium 141 mmol/L (136-145); Total Bilirubin 0.6 mg/dL (0.15-1.2); Total Iron Binding Capacity 284 mcg/dl; Total Protein 7.3 g/dL (6.6-8.7); Unsaturated Iron Binding 149 ug/dL (112-347)
[2023-07-06 14:14] LABS: Erythrocyte Sedimentation Rate 4 mm/hr (0-10)
== END 2023-07-19 23:59 | disposition home or self-care (01) ==
PROVIDERS: PCP Family Medicine; Visit Provider Internal Medicine Medical Oncology
DX: Z53.9 Procedure and treatment not carried out, unspecified reason (principal); R79.89 Other specified abnormal findings of blood chemistry; Z79.899 Other long term (current) drug therapy
CPT/HCPCS: 36415; 80053; 82728; 83540; 83550; 85025; 85651; 86140

== ENCOUNTER → 2023-08-02 15:09 | Outpatient (BNVA) | payer OTHER, SELFPAY | PROVIDERS: PCP Family Medicine; Visit Provider Orthopaedic Surgery | DX: M47.22 Other spondylosis with radiculopathy, cervical region (principal); M54.2 Cervicalgia; M54.9 Dorsalgia, unspecified | CPT/HCPCS: 72050; 72072 ==

== ENCOUNTER 2023-09-26 14:15 | Oncology outpatient (recurring) (ONCR) | payer OTHER, SELFPAY ==
--- NOTE | 2023-09-01 09:45 | MR_ITS ---
WS: [id number] MRI RIGHT SHOULDER HISTORY: right shoulder pain COMPARISON: Shoulder radiograph 05/24/2023 TECHNIQUE: Multiplanar sequences of the shoulder joint are submitted. Severe AC joint arthritis. Increased T2 signal through the AC joint. There is a small complex cyst ex tending superior from the AC joint measuring 7.5 mm. Hypertrophic bone formation at the distal clavic le. Clavicular and acromial osteophytes causing mass effect and deformity of the myotendinous portion of the supraspinatus. Moderate amount of fluid within the subacromial and subdeltoid bursa. Increase d fluid within the biceps tendon sheath. There may be focal split tear within the biceps tendon but t he majority of the tendon is intact. No displacement or dislocation. No os acromion. Moderate atrophy of the supraspinatus muscle. There is severe thickening and increased T2 signal invo lving the distal supraspinatus tendon over a length of at least 3.5 cm. There is marked fraying along both articular and bursal surfaces of the tendon. Focal increased T2 signal with fluid at the rotator cuff interval. This fluid and increased signal ma y involve a very small portion of the supraspinatus insertion site but it predominantly involves the rotator cuff interval. Subscapularis tendon is normal. There is very mild coracohumeral impingement b y an osteophyte from the coracoid. Increased T2 signal is irregular at the base of the superior labrum consistent with a tear. The remai gustavo labrum is intact. MR/MR shoulder RT wo con* [id number] IMPRESSION: 1. Severe AC joint arthritis with osteophyte encroachment upon the supraspinat us muscle and tendon. 2. Degenerative synovial cyst extends superior from the AC joint measuring 7.5 mm. 3. Tiny focal split tear in the biceps tendon in the bicipital groove. 4. Moderate atrophy of the supraspinatus muscle. 5. Severe tendinopathy involving the distal 3.5 cm of the supraspinatus tendon with marked fraying along the surfaces. 6. There is a focal area of increased T2 signal in the rotator cuff interval w hich may extend to involve a very small portion of the supraspinatus tendon whi ch may indicate a small insertion site tear. 7. Tear at the base of the superior labrum. 8. Fluid in the rotator cuff interval. 9. Mild cortical humeral encroachment.
== END 2023-09-26 23:59 | disposition home or self-care (01) ==
LOC: ONCMED 09-27 00:01
PROVIDERS: PCP Family Medicine; Visit Provider Student in an Organized Health Care Education/Training Program
DX: Z53.9 Procedure and treatment not carried out, unspecified reason (principal)
CPT/HCPCS: 73221

== ENCOUNTER 2023-09-27 06:00 | Oncology outpatient (recurring) (ONCR) | payer OTHER, SELFPAY ==
[2023-10-05 14:24] LABS: Basophils % 0.3 %; Eosinophils # 0.1 10^3/uL (0.0-0.8); Eosinophils % 0.8 %; Hematocrit 44.4 % (37-53); Lymphocytes # 3.1 10^3/uL (0.8-4.8); Lymphocytes % 47.6 %; Mean Corpuscular HGB Conc 33.3 g/dL (30-55); Mean Corpuscular Hemoglobin 31.3 pg (27-33); Mean Corpuscular Volume 93.9 fl (82-101); Mean Platelet Volume 9.4 fL (7.4-10.4); Monocytes # 0.5 10^3/uL (0.2-0.9); Monocytes % 8.1 %; Neutrophils % 42.7 %; Nucleated Red Blood Cells % 0 %; Platelet Count 207 10^3/cmm (157-399); Red Blood Count 4.73 10^6/uL (3.85-5.65); Red Cell Distribution Width 11.9 % (12.1-15.1); White Blood Count 6.55 10^3/uL (3.29-11.43)
[2023-10-05 14:52] LABS: Alanine Aminotransferase 18 U/L (0-41); Albumin Level 4.8 g/dL (3.5-5.2); Alkaline Phosphatase 58 U/L (40-130); Anion Gap 15.1 (5-19); Aspartate Amino Transferase 22 U/L (0-40); Blood Urea Nitrogen 15 mg/dL (6-20); Calcium 8.9 mg/dL (8.5-10.5); Carbon Dioxide 26 mmol/L (22-29); Chloride 103 mmol/L (98-107); Ferritin 814 ng/mL (30-400); Globulin 2.8 g/dL (1.3-4.6); Glomerular Filtration Rate 100.7 mL/min (90-130); Glucose 91 mg/dL (65-115); Iron 111 ug/dL (59-158); Osmolality Calculated 290 mOsm/kg (285-295); Potassium 4.1 mmol/L (3.5-5.1); Sodium 140 mmol/L (136-145); Total Bilirubin 0.5 mg/dL (0.15-1.2); Total Iron Binding Capacity 292 mcg/dl; Total Protein 7.6 g/dL (6.6-8.7); Unsaturated Iron Binding 181 ug/dL (112-347)
[2023-10-05 15:14] LABS: Add RBC Morph Yes; Slide Review Slide Review Perform
[2023-10-05 15:15] LABS: RBC Morph Comp No; Stomatocytes 1+
[2023-10-05 15:16] LABS: Pathology Refferal No
== END 2023-10-19 23:59 | disposition home or self-care (01) ==
PROVIDERS: Nurse Practitioner Family; PCP Family Medicine; Visit Provider Student in an Organized Health Care Education/Training Program
DX: R79.89 Other specified abnormal findings of blood chemistry
CPT/HCPCS: 80053; 82728; 83540; 83550; 85025

== ENCOUNTER 2023-10-05 15:27 | Oncology outpatient (recurring) (ONCR) | payer OTHER, SELFPAY | END 2023-10-19 23:59 | disposition home or self-care (01) | PROVIDERS: PCP Family Medicine; Visit Provider Nurse Practitioner Family | DX: R79.89 Other specified abnormal findings of blood chemistry (principal) | CPT/HCPCS: 36415 ==

== ENCOUNTER 2023-12-07 05:43 | Day surgery (SDC) | payer OTHER, SELFPAY ==
--- NOTE | 2023-12-06 17:51 | P.ANESASSM_ITS ---
Pre-Anesthetic Assessment Height/Weight: Height 5 ft 10 in Preop Diagnosis: Rotator cuff tear Operation Date: 12/07/23 07:00 Proposed Procedures p Shoulder Arthroscopy(Right) - Markie Gonzalezatt, DO s Rotator Cuff Repair - Arthroscopy(Right) - Markie Manisha, DO s Subacromial Decompression(Right) - Markie Noble, DO s AC Joint Resection Acromioclavicular Joint Resection(Right) - Markie Manisha, DO s Bicep Tenodesis(Right) - Markie Noble, DO Anesthetic Plan Other: No prior issues with anesthesia NPO since midnight History of cervical spondylosis Diaphragm paralysis Restrictive lung disease Hiatal hernia, GERD Labs 10/05/2023 reviewed Stress test 2021 was negative, excellent exercise tolerance at that time Plan for general anesthesia with PNB Medications/Allergies Home Medications Medication Instructions Recorded Confirmed Last Taken Type hydrocodone 10 mg-acetaminophen 1 tab PO BID PRN Pain 06/25/20 12/06/23 04/26/23 History 325 mg tablet gabapentin 100 mg capsule 100 mg PO .hs #30 caps 04/08/23 12/06/23 04/26/23 Rx hydrocortisone 2.5 % topical cream 1 applic SD QID PRN hemorrhoids 10 05/09/23 12/06/23 Unknown Rx with perineal applicator days #30 grams (Anusol-HC) sulfasalazine 500 mg tablet 1 g (2 x 500 mg) PO BID #120 tabs 07/25/23 12/06/23 12/06/23 Rx finasteride 5 mg tablet 5 mg PO DAILY 10/05/23 12/06/23 12/06/23 History metoprolol tartrate 50 mg tablet See Rx Instructions .Route 10/20/23 12/06/23 12/06/23 Rx .COMPLEX #90 tabs hydrochlorothiazide 12.5 mg tablet See Rx Instructions .Route 11/04/23 12/06/23 Rx .COMPLEX #90 tabs Allergies Allergy/AdvReac Type Severity Reaction Status Date / Time No Known Allergies Allergy Verified 10/11/23 08:21 [facility] Anesthesia Medical History [place] stomach BIA positive Hiatal hernia Allergic rhinitis Plantar fasciitis Chronic prostatitis Years of longstanding refractory chronic prostatitis with failure to maintain normalcy with weaning of antibiotics. Cervical disc disorder with myelopathy of mid-cervical region Hypertension Intervertebral lumbar disc disorder Surgical History H/O esophagogastroduodenoscopy (09/08/21) History of back surgery (04/13/21) Left L4/5 laminectomy with partial facetectomy and discectomy History of appendectomy Family History Mother , AT AGE 77 Chronic kidney disease (CKD) Father , AT AGE 92 Stroke Other CAD (coronary artery disease) Cancer Dementia Diabetes Denies family history of Rheumatoid arthritis Lupus Social History Smoking and tobacco/nicotine status: never used tobacco/nicotine Alcohol intake: current Alcohol intake frequency: holidays/special occasions only Substance/Drug Use: never Lives independently: Yes Household members: spouse Marital status: Current occupational status: employed Data Anesthesia Cardiac Studies: No Data to Display
[2023-12-07] VITALS (10 sets, daily range): BP systolic 117–171; BP diastolic 73–111; PULSE 56–72; RESP 16–18; TEMP 36.1–36.6; O2SAT 95–99; BMI 28.7
[2023-12-07] MEDS: ketorolac 30 mg/mL INJ IVP (06:23)
[2023-12-07] MEDS: acetaminophen 1,000 MG/100 ML PIGGYBACK 400 MG IV (06:25)
[2023-12-07] MEDS: scopolamine 1.5 Patch 1 PATCH TRANSDERMA (06:27)
[2023-12-07] MEDS: sodium chloride 0.9% 1,000 ML 30 ML IV (06:40)
--- NOTE | 2023-12-07 06:56 | W.PM.OPSFHP ---
Same Day Surgery H&P Indication for Procedure/HPI DATE OF PROCEDURE: December 07, 2023 CHIEF COMPLAINT/INDICATIONFOR SURGICAL PROCEDURE: Right shoulder rotator cuff tear, AC joint arthritis, labral tear of the superior aspect of the bicep tendon insertion, subacromial impingement bicep tendinitis PREOP DIAGNOSIS: Rotator cuff tear, bicep tendinitis, SLAP tear, AC joint arthritis, subacro PLANNED PROCEDURE: Operation Date: 12/07/23 07:00 Proposed Procedures p Shoulder Arthroscopy(Right) - Markie Dyer DO s Rotator Cuff Repair - Arthroscopy(Right) - Markie Dyer DO s Subacromial Decompression(Right) - Markie Dyer DO s AC Joint Resection Acromioclavicular Joint Resection(Right) - Markie Dyer DO s Bicep Tenodesis(Right) - Markie Dyer DO Medications/Allergies* Home Medications Medication Instructions Recorded Confirmed Type hydrocodone 10 mg-acetaminophen 1 tab PO BID PRN Pain 06/25/20 12/06/23 History 325 mg tablet finasteride 5 mg tablet 5 mg PO DAILY 10/05/23 12/06/23 History Allergies/Adverse Reactions Allergy/AdvReac Type Severity Reaction Status Date / Time No Known Allergies Allergy Verified 12/07/23 06:12 Current Medications: Generic Name Dose Route Start Last Admin Trade Name Freq PRN Reason Stop Dose Admin Sodium Chloride 1,000 mls @ 30 mls/hr 12/07/23 06:00 12/07/23 06:40 Sodium Chloride 0.9% IV 12/08/23 05:59 30 mls/hr .Q24H [facility] Administration Pertinent History/Comorbid Conditions* Medical History (Updated 10/21/23 @ 08:04 by Markie Dyer DO) [place] stomach BIA positive Hiatal hernia Allergic rhinitis Plantar fasciitis Chronic prostatitis Years of longstanding refractory chronic prostatitis with failure to maintain normalcy with weaning of antibiotics. Cervical disc disorder with myelopathy of mid-cervical region Hypertension Intervertebral lumbar disc disorder Surgical History (Updated 02/18/22 @ 19:18 by Misha Ray MD) H/O esophagogastroduodenoscopy (09/08/21) History of back surgery (04/13/21) Left L4/5 laminectomy with partial facetectomy and discectomy History of appendectomy Family History (Updated 09/09/21 @ 08:51 by Myla Tolbert RN) Father, AT AGE 92 Mother, AT AGE 77 Diabetes CAD (coronary artery disease) Dementia Chronic kidney disease (CKD) Mother Cancer Stroke Father Denies family history of Rheumatoid arthritis Lupus Social History Smoking and tobacco/nicotine status: never used tobacco/nicotine Alcohol intake: current Alcohol intake frequency: holidays/special occasions only Substance/Drug Use: never Lives independently: Yes Household members: spouse Marital status: Current occupational status: employed Pertinent Exam Findings alert, oriented x 3, operative site marked and procedure specific exam findings Right upper extremity examination: C-Spine tenderness to palpation and mildly positive Spurling's. Full active and passive range of motion of the shoulder however significant tenderness palpation noted in range of motion Tenderness to palpation over the AC joint and most pronounced over the anterior aspect of the shoulder over the bicipital groove mild lateral tenderness. Patient has pain with Jobes examination but overall good strength positive speeds positive Ponder's positive crossover arm test with tenderness over the AC joint. Positive Masters impingement Patient has significant decrease in tenderness to palpation over the lateral epicondyle with minimal pain with resisted wrist extension. Patient has negative Tinel's over the radial tunnel and negative resistance against the middle finger on extension, positive median nerve compression test as well as positive Tinel's over the carpal tunnel at the wrist. Mild positive Tinel's over the right elbow Recommendations Surgery/Procedure today Other Plans: plan to proceed to the OR today for right shoulder diagnostic and surgical arthroscopy with rotator cuff repair, subacromial decompression, acromioclavicular joint resection and biceps tenodesis . Patient understands the ins and outs procedure the risk benefits complication alternatives of surgery and through shared decision-making elects proceed with surgical intervention. All questions answered at this time. Coding Level of Care Code Acute Code for [facility]
[2023-12-07] MEDS: ceFAZolin 2,000 MG in sodium chloride 0.9% (plus) 50 ML 100 MG IV (07:15)
[2023-12-07] MEDS: EPINEPHrine 1 mg/mL INJ 2 MG XX (08:43)
[2023-12-07] MEDS: ROPivacaine 0.5% SDV 30 mL 100 MG INJECTION (09:00)
[2023-12-07] MEDS: lidocaine 2% INJ 20 mL INJECTION (09:00)
--- NOTE | 2023-12-07 09:18 | P.BOP_ITS ---
Date of Procedure: [December 07, 2023] Surgeon: [Dr. 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
--- NOTE | 2023-12-07 09:27 | PM.PACU ---
PACU note Narrative: Patient is a 53-year-old male just underwent a right shoulder diagnostic and surgical arthroscopy. Patient transferred to PACU in stable condition. Pain is well controlled. shoulder Dressing on , dry and in place. Patient's operative arm is in a shoulder immobilizer. Patient is awake and alert and able to respond to my questions accordingly. Patient's fingers are warm with good perfusion. Normal cap refill under 2 seconds. Unable to assess further range of motion in arm due to sling. Sensation hand intact. Radial pulse 2+ Exam: awake Disposition: discharged
[2023-12-07] MEDS: fentaNYL 50 mcg/mL INJ 2mL IVP (09:40)
--- NOTE | 2023-12-07 09:43 | P.OP_ITS ---
Operative Report Date of procedure: December 07, 2023 Surgeon: Markie Dyer DO [employer]uminum Boat Inspector: Aldo Dyer PA-C: PA was necessary for assistance in this case with shoulder positioning to execute the procedure, assistance with instrumentation, as well as implant fixation when necessary, assist with wound closure and dressing application. Procedure: Preoperative diagnosis: Right shoulder rotator cuff tear, AC joint arthritis, superior labral tear, biceps tendinitis, subacromial impingement Post-op diagnosis: Right?shoulder?superior labral tear Right?shoulder?biceps tendinitis Right?shoulder?rotator cuff tear Right?shoulder?AC joint arthritis Right?shoulder?subacromial bursitis/impingement Procedure done: Right?shoulder?diagnostic and surgical?arthroscopy with?arthroscopic rotator cuff repair (medium Right?shoulder?diagnostic and surgical?arthroscopy biceps tenodesis Right?shoulder?diagnostic and surgical?arthroscopy labral debridement Right?shoulder?diagnostic and surgical?arthroscopy acromioclavicular joint resection Right?shoulder?diagnostic and surgical?arthroscopy subacromial decompression (acromioplasty and bursectomy) Surgeon: Markie Dyer DO Estimated blood loss: 10mL IV fluids: See anesthesia record Implants: Arthrex 4.75 loop and tack biceps tenodesis system/Kit Arthrex 4.75 bio composite swivel lock anchors- x 2 with suture tape and fiber link Complications: None Condition: stable Disposition: same day Brief History: Patient been seen and worked up in the outpatient setting for right?shoulder?pain.? Pt had an MRI which showed findings below.? Patient's failed conservative treatment and has weakness.? We talked about treatment options far as nonoperative and operative intervention..? We talked about risk benefits complication alternatives surgical nonsurgical treatment options.? Understanding risk of surgery he agrees to proceed with surgical intervention for right shoulder diagnostic and surgical arthroscopy with rotator cuff repair, subacromial decompression, acromioclavicular joint resection and biceps tenodesis.? All questions have been answered at this time.? Patient elects proceed with surgery and consent obtained. MR/MR shoulder RT wo con* [id number] IMPRESSION: 1. Severe AC joint arthritis with osteophyte encroachment upon the supraspinatus muscle and tendon. 2. Degenerative synovial cyst extends superior from the AC joint measuring 7.5 mm. 3. Tiny focal split tear in the biceps tendon in the bicipital groove. 4. Moderate atrophy of the supraspinatus muscle. 5. Severe tendinopathy involving the distal 3.5 cm of the supraspinatus tendon with marked fraying along the surfaces. 6. There is a focal area of increased T2 signal in the rotator cuff interval which may extend to involve a very small portion of the supraspinatus tendon which may indicate a small insertion site tear. 7. Tear at the base of the superior labrum. 8. Fluid in the rotator cuff interval. 9. Mild cortical humeral encroachment. Procedure: Patient seen evaluated in the preoperative holding area.? Consent reviewed and signed with patient.? Once again reviewed patient's MRI results as well as? planned surgical intervention.? Correct extremity marked.? Patient seen evaluated by anesthesia department received regional anesthesia.? Once ready for surgery was taken back to the operative suite.? Patient then subsequently underwent anesthesia per the anesthesia department was transported onto the OR table.? Patient was then placed into a lateral decubitus position with a beanbag and was appropriately secured to the bed.? All bony prominences well-padded.? Patient then had the right upper extremity was then prepped and draped in standard orthopedic fashion.? Patient received appropriate preoperative antibiotics.? Final timeout performed. The right upper extremity was then held in hanging from traction utilizing sterile technique.? Next started with standard diagnostic and surgical?arthroscopy with posterior portal position introduced?arthroscope into the glenohumeral joint.? Visualized the glenohumeral joint I then introduced a spinal needle within the rotator cuff interval to confirm appropriate anterior portal placement.? Once this was confirmed I then made my small incision and then introduced my?arthroscopic shaver into the glenohumeral joint.? After flushing the joint fluid, was clearly evident patient had biceps tendon tearing as well as Superior labral tear as well as significant biceps inflammation. Patient had appreciable unstable biceps anchor most pronounced in the superior labrum. Given there appears to be healthy intra-articular tendon plan was for an intra-articular biceps tenodesis at the superior portion as it enters the intertubercular groove. Thermal wand introduced into the rotator interval. I then release of the rotator interval to have appropriate visualization and the ability to perform biceps tenodesis. At this point I established a purple passport cannula which was introduced. Next I performed an Arthrex loop and tap biceps tenodesis. Passer was then made around the tendon luggage tag stitch around and then thru the tendon and around twice I then utilized a thermal wand to release the biceps tendon at the anchor to perform with tenotomy. I then loaded with suture onto an Arthrex 4.75 swivel lock suture anchor. A punch was then placed in appropriate position at the entry point into the intertubercular groove just superior to the subscapularis tendon. Punch was then introduced to the appropriate depth. The suture loaded on the swivel lock was then advanced held under appropriate tension and shoulder lock anchor was then advanced and had excellent fixation. Excess suture was then cut biceps tenodesis was complete. I then utilized a thermal wand to seal the edges of the superior labrum. Next I evaluated the subscapularis tendon which was intact and no evidence of tear. ?Next there was significant labral tearing at biceps anchor and circumferential.? ? I then subsequently utilized a a?arthroscopic shaver and thermal wand to perform a labral debridement.? This point time I then visualized the glenohumeral joint.? 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 Infrapatellar pouch was free of loose bodies from viewing the posterior portal.? Next a visualized the rotator cuff superiorly and there was found to be a full-thickness tear in the anterior border of the supraspinatus tendon.? I utilized a spinal needle to abdi this location.?? This completed my work within the glenohumeral joint all fluid was suctioned free of the joint.? ?Next I reintroduced the?arthroscope posteriorly.? And went to the subacromial space.? I established my lateral working portal at the site of which my spinal needle was marking of the rotator cuff tear.? Thermal wand was then introduced laterally and then I subsequently performed extensive bursectomy of the subacromial space.? Patient had a large anterior bone spur.? At this point time I proceeded with my AC joint resection thermal wand was used and track to the anterior edge of the acromion and then tracked all the way to the AC joint.? Once identified the AC joint this was very arthritic in nature.? Thermal wand was placed anteriorly to establish appropriate plane for AC joint resection.? O nce appropriate margins and anterior inferior and anterior capsule was released I then introduced?arthroscopic shaver and a bur and performed AC joint resection of both the acromion to cope plane at the AC joint and a distal clavicle resection was then performed totaling 1 cm in size and was confirmed.? This completed my AC joint resection and I then introduced the?arthroscopic shaver laterally while continuing to view posteriorly.? I then performed an acromioplasty to complete my subacromial decompression prior to fixing the rotator cuff tear.? Next the?arthroscopic shaver was then used previous spinal needle spot that is marked the full-thickness rotator cuff which was consistent with a medium size tear in the anterior portion of the supraspinatus tendon. This was retracted to the medial face of the humeral head. I was able to utilize arthroscopic shaver to release any adhesions above and below the rotator cuff I utilized a tissue grasper and tendon did have excellent quality and ability for repair to its insertion site. I utilized a simple fiber link suture to obtain control and have appropriate tension while performing the repair. Next I then subsequently utilized my arthroscopic shaver as well as bur to debride and decorticate the footprint for the repair site as well as soft tissue to have appropriate bone for healing. Next I then utilized utilized a punch and placed a double loaded 4.75 swivel lock with double loaded suture tape. I then subsequently made 4 passes with my isolated medial row anchor along the anterior to posterior aspect of the supraspinatus tendon tear. I then from here loaded these as well as the fiber link suture to an additional 4.75 swivel lock I marked my lateral anchor position with a thermal wand and then subsequently loaded these to the 4.75 bio composite swivel lock suture anchor these were then sequentially tensioned to be appropriately tension with care not to over tension the rotator cuff this had excellent bring over of the supraspinatus tendon tear and then subsequent this was impacted and secured appropriate fixation all excess sutures were then cut. I was satisfied with the rotator cuff repair back to the footprint. Repair was found to be satisfactory?shoulder?was taken through range of motion and the repair moved as a unit with no evidence of loss of fixation. ?I then switched the?arthroscope to the lateral portal to confirm this tension- free repair.? I took the?shoulder?through range of motion and the rotator cuff repair was stable and moved as a unit. ?Next I then introduced the?arthroscopic shaver posteriorly to complete my subacromial decompression appropriate complaining all the way up to the lateral edge of the acromion.? This completed the surgery.? All fluid was suctioned from the?shoulder.? All instruments were removed.? The lateral incision was then closed with nylon stitches.? As well as the portal sites closed with portal nylon stitches.? Xeroform 4 x 4's ABD and tape was then applied to the right?shoulder?and was placed into a?shoulder?abduction pillow sling for rotator cuff repair.? Patient was then awakened from anesthesia and then taken back to PACU in stable condition.? Patient tolerated procedure without any issues. Disposition: Patient taken back in stable condition recovering well.? Dressings on in place clean dry and intact.? Will be nonweightbearing to the right upper extremity.? Follow rotator cuff repair protocol.? Patient to follow-up with me in the office in 2 weeks.? Patient will receive appropriate discharge instruction as well as pain medication postoperatively.? All questions answered.? We will contact the office for any questions or concerns.
[2023-12-07] MEDS: HYDROmorphone 1 mg/mL INJ 1 mL 0.5 MG IVP (10:05)
[2023-12-07] MEDS: oxyCODONE-APAP 10-325 mg Tablet 1 TAB PO (10:14)
--- NOTE | 2023-12-07 11:45 | ANE.PACU2 ---
Inpatient post-anesthesia follow up: Airway intact: Yes Vital signs: Temperature 98 F Pulse Rate 67 Respiratory Rate 17 Blood Pressure 127/106 Pulse Oximetry 96 Oxygen Delivery Me thod Nasal Cannula Oxygen Flow Rate 2.0 Fraction of Inspir ed Oxygen Hydration adequate: Yes Nausea and vomiting: No Pain level: 3 Mental status: Baseline
== END 2023-12-07 11:45 | disposition home or self-care (01) ==
PROVIDERS: PCP Family Medicine; Visit Provider Student in an Organized Health Care Education/Training Program
PROC: (CPT 29805; principal; 2023-12-07 07:00)
PROC: (CPT 29827; 2023-12-07 07:00)
PROC: (CPT 29826; 2023-12-07 07:00)
PROC: 0RSG0ZZ Reposition Right Acromioclavicular Joint, Open Approach (ICD-10-PCS; CPT 29824; 2023-12-07 07:00)
PROC: (CPT 23430; 2023-12-07 07:00)
PROC: (CPT 29824; 2023-12-07 07:00)
DX: S43.431A Superior glenoid labrum lesion of right shoulder, initial encounter (principal); X58.XXXA Exposure to other specified factors, initial encounter; M75.21 Bicipital tendinitis, right shoulder; M19.011 Primary osteoarthritis, right shoulder; M25.811 Other specified joint disorders, right shoulder; J98.6 Disorders of diaphragm; K21.9 Gastro-esophageal reflux disease without esophagitis; I10 Essential (primary) hypertension
CPT/HCPCS: 29824; 29826; 29827; 29828; C1713; J0131; J0171; J0690; J1100; J1170; J1885; J2405; J2704; J2710; J2795; J3010; J3490; J7030

== ENCOUNTER 2024-01-11 13:15 | Oncology outpatient (recurring) (ONCR) | payer OTHER, SELFPAY ==
[2024-01-11 13:50] LABS: Basophils % 0.5 %; Eosinophils # 0.1 10^3/uL (0.0-0.8); Eosinophils % 1.5 %; Hematocrit 45.4 % (37-53); Lymphocytes # 2.3 10^3/uL (0.8-4.8); Lymphocytes % 37.4 %; Mean Corpuscular HGB Conc 32.4 g/dL (30-55); Mean Corpuscular Hemoglobin 30.8 pg (27-33); Monocytes # 0.4 10^3/uL (0.2-0.9); Monocytes % 6.5 %; Neutrophils # 3.26 10^3/uL (1.8-7.7); Neutrophils % 53.1 %; Nucleated Red Blood Cells % 0 %; Platelet Count 198 10^3/cmm (157-399); Red Blood Count 4.78 10^6/uL (3.85-5.65); Red Cell Distribution Width 11.9 % (12.1-15.1); White Blood Count 6.13 10^3/uL (3.29-11.43)
[2024-01-11 14:07] LABS: Alanine Aminotransferase 22 U/L (0-41); Albumin Level 4.6 g/dL (3.5-5.2); Alkaline Phosphatase 80 U/L (40-130); Anion Gap 15.6 (5-19); Aspartate Amino Transferase 22 U/L (0-40); Blood Urea Nitrogen 12 mg/dL (6-20); Carbon Dioxide 27 mmol/L (22-29); Chloride 101 mmol/L (98-107); Creatinine Clr Calc Pharmacy 121.2003; Ferritin 742 ng/mL (30-400); Globulin 2.8 g/dL (1.3-4.6); Glomerular Filtration Rate 100.7 mL/min (90-130); Glucose 152 mg/dL (65-115); Iron 112 ug/dL (59-158); Osmolality Calculated 293 mOsm/kg (285-295); Percent Saturation 38.6 % (20-50); Potassium 3.6 mmol/L (3.5-5.1); Sodium 140 mmol/L (136-145); Total Bilirubin 0.4 mg/dL (0.15-1.2); Total Iron Binding Capacity 290 mcg/dl; Total Protein 7.4 g/dL (6.6-8.7); Unsaturated Iron Binding 178 ug/dL (112-347)
== END 2024-01-19 23:59 | disposition home or self-care (01) ==
PROVIDERS: Nurse Practitioner; PCP Family Medicine; Visit Provider Nurse Practitioner Family
DX: R79.89 Other specified abnormal findings of blood chemistry (principal); R78.6 Finding of steroid agent in blood
CPT/HCPCS: 36415; 80053; 82728; 83540; 83550; 85025

== ENCOUNTER 2024-01-27 07:35 | Outpatient (RCR) | payer OTHER, SELFPAY | END 2024-02-18 23:59 | disposition home or self-care (01) | LOC: SPT 07:35 | PROVIDERS: Visit Provider Physician Assistant | DX: Z98.890 Other specified postprocedural states (principal) | CPT/HCPCS: 97110; 97161 ==

== ENCOUNTER 2024-02-19 06:00 | Outpatient (RCR) | payer OTHER, SELFPAY | END 2024-03-20 23:59 | disposition home or self-care (01) | LOC: SPT 06:00 | PROVIDERS: PCP Family Medicine; Visit Provider Physician Assistant | DX: Z98.890 Other specified postprocedural states (principal) | CPT/HCPCS: 97110 ==

== ENCOUNTER 2024-03-21 06:00 | Outpatient (RCR) | payer OTHER, SELFPAY | END 2024-04-05 23:59 | disposition home or self-care (01) | LOC: SPT 06:00 | PROVIDERS: PCP Family Medicine; Visit Provider Physician Assistant | DX: Z98.890 Other specified postprocedural states (principal) | CPT/HCPCS: 97110 ==

== ENCOUNTER 2024-04-11 12:48 | Oncology outpatient (recurring) (ONCR) | payer OTHER, SELFPAY ==
[2024-04-11 13:18] LABS: Basophils % 0.6 %; Eosinophils # 0.1 10^3/uL (0.0-0.8); Hematocrit 46.9 % (37-53); Lymphocytes # 2.9 10^3/uL (0.8-4.8); Lymphocytes % 46.8 %; Mean Corpuscular HGB Conc 33.5 g/dL (30-55); Mean Corpuscular Hemoglobin 30.6 pg (27-33); Mean Corpuscular Volume 91.4 fl (82-101); Mean Platelet Volume 8.9 fL (7.4-10.4); Monocytes # 0.4 10^3/uL (0.2-0.9); Monocytes % 6.1 %; Neutrophils % 44.7 %; Nucleated Red Blood Cells % 0 %; Platelet Count 212 10^3/cmm (157-399); Red Blood Count 5.13 10^6/uL (3.85-5.65); White Blood Count 6.26 10^3/uL (3.29-11.43)
[2024-04-11 13:38] LABS: Alanine Aminotransferase 19 U/L (0-41); Albumin Level 4.5 g/dL (3.5-5.2); Alkaline Phosphatase 74 U/L (40-130); Anion Gap 15.8 (5-19); Aspartate Amino Transferase 19 U/L (0-40); Blood Urea Nitrogen 12 mg/dL (6-20); Calcium 9.4 mg/dL (8.5-10.5); Carbon Dioxide 25 mmol/L (22-29); Chloride 104 mmol/L (98-107); Creatinine Clr Calc Pharmacy 109.4191; Ferritin 700 ng/mL (30-400); Globulin 2.9 g/dL (1.3-4.6); Glomerular Filtration Rate 87.9 mL/min (90-130); Glucose 134 mg/dL (65-115); Iron 118 ug/dL (59-158); Osmolality Calculated 294 mOsm/kg (285-295); Percent Saturation 39.5 % (20-50); Potassium 3.8 mmol/L (3.5-5.1); Sodium 141 mmol/L (136-145); Total Bilirubin 0.4 mg/dL (0.15-1.2); Total Iron Binding Capacity 298 mcg/dl; Total Protein 7.4 g/dL (6.6-8.7); Unsaturated Iron Binding 180 ug/dL (112-347)
== END 2024-04-20 23:59 | disposition home or self-care (01) ==
PROVIDERS: Internal Medicine; PCP Family Medicine; Visit Provider Nurse Practitioner Family
DX: R79.89 Other specified abnormal findings of blood chemistry (principal)
CPT/HCPCS: 36415; 80053; 82728; 83540; 83550; 85025

== ENCOUNTER → 2024-07-17 14:16 | Outpatient (BNVA) | payer OTHER, SELFPAY | PROVIDERS: PCP Family Medicine; Visit Provider Orthopaedic Surgery | DX: M51.369 Other intervertebral disc degeneration, lumbar region without mention of lumbar back pain or lower extremity pain (principal) | CPT/HCPCS: 72110 ==

== ENCOUNTER 2024-08-08 08:33 | Outpatient (RCR) | payer OTHER, SELFPAY | END 2024-08-18 23:59 | disposition home or self-care (01) | LOC: SPT 08:33 | PROVIDERS: Visit Provider Orthopaedic Surgery | DX: M54.9 Dorsalgia, unspecified (principal); G89.29 Other chronic pain | CPT/HCPCS: 97161 ==

== ENCOUNTER 2024-10-02 11:45 | Oncology outpatient (recurring) (ONCR) | payer OTHER, SELFPAY ==
[2024-09-19 13:19] LABS: Hematocrit 45.8 % (37-53); Hemoglobin 15.40 g/dL (11.27-16.99); Mean Corpuscular HGB Conc 33.6 g/dL (30-55); Mean Corpuscular Hemoglobin 31.0 pg (27-33); Mean Corpuscular Volume 92.2 fl (82-101); Nucleated Red Blood Cells % 0 %; Platelet Count 199 10^3/cmm (157-399); Red Blood Count 4.97 10^6/uL (3.85-5.65); White Blood Count 5.68 10^3/uL (3.29-11.43)
[2024-09-19 13:38] LABS: Alanine Aminotransferase 23 U/L (0-41); Albumin Level 4.4 g/dL (3.5-5.2); Alkaline Phosphatase 74 U/L (40-130); Anion Gap 19.0 (5-19); Aspartate Amino Transferase 20 U/L (0-40); Blood Urea Nitrogen 12 mg/dL (6-20); Calcium 9.0 mg/dL (8.5-10.5); Carbon Dioxide 23 mmol/L (22-29); Chloride 105 mmol/L (98-107); Creatinine Clr Calc Pharmacy 122.2005; Ferritin 700 ng/mL (30-400); Globulin 2.8 g/dL (1.3-4.6); Glucose 177 mg/dL (65-115); Iron 116 ug/dL (59-158); Osmolality Calculated 300 mOsm/kg (285-295); Potassium 4.0 mmol/L (3.5-5.1); Sodium 143 mmol/L (136-145); Total Iron Binding Capacity 298 mcg/dl; Total Protein 7.2 g/dL (6.6-8.7); Unsaturated Iron Binding 182 ug/dL (112-347); Uric Acid 5.9 mg/dL (3.4-7.0)
--- NOTE | 2024-10-02 11:45 | MR_ITS ---
WS: [id number] MRI LUMBAR SPINE NONCONTRAST HISTORY: Chronic pain radiating to LEFT hip. Prior lumbar spine surgery. COMPARISON: 12/04/2020 TECHNIQUE: Sagittal and axial multisequence imaging is submitted. Small disc osteophyte at C3-4 encroaching upon the ventral cervical cord. Slight increase in the lumbar lordosis. Minimal disc space narrowing and desiccation throughout the lumbar spine. No acute fracture or marrow edema. Conus terminates normally at L1-2 disc level. L1-L2: Minimal disc bulging. No stenosis. L2-L3: Mild annular disc bulging with a very shallow central disc protrusion and fissure. Mild osteophytic ridging. There is mild disc encroachment into the subarticular recesses contacting the traversing L3 nerve roots. Progressed since the prior study. L3-L4: Mild annular disc bulging with facet and ligamentum flavum hypertrophy. Mild facet arthritis. No stenosis. L4-L5: Mild annular disc bulging encroaching upon the ventral thecal sac. There is disc contacting the traversing L5 nerve roots bilaterally. Prior LEFT hemilaminectomy defect. Previously described disc protrusion on the LEFT is no longer present. Moderate facet arthritis. Mild bilateral foraminal stenosis due to disc osteophyte disease and facet disease. L5-S1: Mild disc bulging with facet joint arthritis. No disc protrusions. Mild LEFT foraminal stenosis. Paravertebral soft tissues are negative. MR/MR lumbar spine wo con* [id number] IMPRESSION: 1. Previously described disc protrusion at L4-5 extending into the lateral rec ess this been surgically excised. 2. L4-5: Disc bulging contacting the traversing L5 nerve roots with prior LEFT hemilaminectomy defect. Mild bilateral foraminal stenosis and moderate facet a rthritis. 3. L2-3: Annular disc bulging with a central disc protrusion contacting the tr aversing L3 nerve roots. Disc contact on the nerve roots has progressed since t he prior study. 4. Mild LEFT foraminal stenosis at L5-S1.
== END 2024-10-18 23:59 | disposition home or self-care (01) ==
LOC: RAD 10-03 → ONCMED 10-03 09:11
PROVIDERS: Internal Medicine; PCP Family Medicine; Visit Provider Nurse Practitioner Family
DX: M51.369 Other intervertebral disc degeneration, lumbar region without mention of lumbar back pain or lower extremity pain; M96.89 Other intraoperative and postprocedural complications and disorders of the musculoskeletal system; M51.26 Other intervertebral disc displacement, lumbar region; M48.07 Spinal stenosis, lumbosacral region; M25.78 Osteophyte, vertebrae; M24.28 Disorder of ligament, vertebrae; M47.896 Other spondylosis, lumbar region; M47.897 Other spondylosis, lumbosacral region; Z53.9 Procedure and treatment not carried out, unspecified reason
CPT/HCPCS: 36415; 72148; 80053; 82728; 83540; 83550; 83615; 84550; 85025; 85651; 86140

== ENCOUNTER → 2024-10-29 10:49 | Outpatient (BNVA) | payer OTHER, SELFPAY | PROVIDERS: PCP Family Medicine; Visit Provider Family Medicine | DX: R73.9 Hyperglycemia, unspecified (principal) | CPT/HCPCS: 83036 ==

== ENCOUNTER → 2024-11-21 12:09 | Outpatient (BNVA) | payer OTHER, SELFPAY | PROVIDERS: PCP Family Medicine; Visit Provider Family Medicine | DX: R79.89 Other specified abnormal findings of blood chemistry (principal) | CPT/HCPCS: 82728 ==

== ENCOUNTER → 2024-11-27 08:26 | Outpatient (BNVA) | payer OTHER, SELFPAY | PROVIDERS: PCP Family Medicine; Visit Provider Family Medicine | DX: R79.89 Other specified abnormal findings of blood chemistry (principal) | CPT/HCPCS: 82728 ==

== ENCOUNTER → 2025-01-21 09:39 | Outpatient (BNVA) | payer OTHER, SELFPAY | PROVIDERS: PCP Family Medicine; Visit Provider Anesthesiology Pain Medicine | DX: M16.9 Osteoarthritis of hip, unspecified (principal); R79.89 Other specified abnormal findings of blood chemistry; E11.9 Type 2 diabetes mellitus without complications; M16.0 Bilateral primary osteoarthritis of hip; M21.852 Other specified acquired deformities of left thigh | CPT/HCPCS: 73521; 82728; 83036 ==

== ENCOUNTER → 2025-01-30 09:28 | Outpatient (BNVA) | payer OTHER, SELFPAY | PROVIDERS: PCP Family Medicine; Visit Provider Anesthesiology Pain Medicine | DX: Z53.9 Procedure and treatment not carried out, unspecified reason (principal) | CPT/HCPCS: 20610; 36416; 77002; 82962 ==